=== PATIENT | male | born 1940 | race Caucasian/White ===

== ENCOUNTER 2018-01-04 17:41 | Inpatient (IN) | payer OTHER ==
[~2018-01-04] VITALS: Ht 167.6 cm; Wt 116.0 kg
[2018-01-04] MEDS ORDERED: SODIUM CHLORIDE 0.9% 1000ML 1,000 ML IV STA (18:15)
--- NOTE | 2018-01-04 18:29 | DIAGNOSTIC IMAGING REPORT ---
CHEST ONE VIEW PORTABLE CLINICAL HISTORY: 77 years-old Male presenting with ABDOMINAL PAIN/GI. TECHNIQUE: Portable upright AP view of the chest was obtained. COMPARISON: None. FINDINGS: Atherosclerosis of aortic arch. Cardiac silhouette enlarged. Pulmonary vascular prominence. Lungs and pleural spaces clear. Degenerative changes of the thoracic spine. Degenerative changes of the left acromioclavicular joint. Upper abdomen normal. IMPRESSION: 1. Cardiomegaly with volume overload. No ninfa pulmonary edema. Electronically signed by: Carlos Hannah M.D. 01/04/2018 6:27 PM Dictated Date/Time: 01/04/2018 6:27 PM
[2018-01-04] MEDS ORDERED: OPTIRAY 320 IV PRN (18:30)
[2018-01-04 18:36] LABS: BASO % 0.2 %; BASO ABS # 0.02 K/uL (0-0.2); EOS % 1.2 %; EOS ABS # 0.11 K/uL (0-0.5); HEMATOCRIT 44.4 % (42-52); HEMOGLOBIN 15.2 g/dL (14.0-18.0); IG# 0.04 K/uL (0.00-0.02); LYMPH % 14.6 %; LYMPH ABS # 1.35 K/uL (1.2-3.4); MEAN CELL VOLUME 92.9 fL (80-100); MEAN CORPUSCULAR HEMOGLOBIN 31.8 pg (25-34); MEAN CORPUSCULAR HGB CONC 34.2 g/dl (32-36); MEAN PLATELET VOLUME 10.8 fL (7.4-10.4); MONO % 6.3 %; MONO ABS # 0.58 K/uL (0.11-0.59); NEUT % 77.3 %; NEUT ABS # 7.12 K/uL (1.4-6.5); PLATELET COUNT 141 K/uL (130-400); RED CELL DISTRIBUTION WIDTH CV 13.3 % (11.5-14.5); RED CELL DISTRIBUTION WIDTH SD 44.9 fL (36.4-46.3); WHITE BLOOD COUNT 9.22 K/uL (4.8-10.8)
[2018-01-04 18:39] LABS: ISTAT CREATININE 0.6 mg/dl (0.6-1.3); ISTAT IONIZED CALCIUM 1.07 mmol/l (1.12-1.32); ISTAT POTASSIUM 3.7 mEq/L (3.3-5.0)
--- NOTE | 2018-01-04 18:39 | EMERGENCY ROOM VISIT NOTE ---
History Report prepared by Junie: Javan Castro Under the Supervision of: Dr. Gabino Christianson D.O. First contact with patient: 18:07 Chief Complaint: ABDOMINAL PAIN Stated Complaint: ABD PAIN Nursing Triage Summary: pt to the ED with c/o abd pain from a umbilical hernia that got worse today History of Present Illness The patient is a 77 year old male who presents to the Emergency Room with complaints of worsening abdominal pain that began yesterday. He rates his discomfort as a 9/10 in severity. The patient reports that he has had an umbilical hernia since 2003. He reports that he has noticed his hernia has been increasing and size and he believes has been causing pain recently. The patient states that yesterday his abdominal pain worsened, which caused him to come to the ED. He denies seeing a surgeon or doctor since he currently does not have a PCP. The patient states that he called someone today who set up an appointment on January 21 to see a PCP. The patient denies nausea, vomiting, diarrhea, fevers , chills, back pains, a history of appendectomy or cholecystectomy. He reports a history of Diabetes Mellitus. Source of History: patient Onset: yesterday Position: abdomen Symptom Intensity: 9/10 Timing: worsening Associated Symptoms: No fevers, No chills, No nausea, No vomiting, No back pain, No diarrhea Review of Systems See HPI for pertinent positives & negatives. A total of 10 systems reviewed and were otherwise negative. Past Medical & Surgical Medical Problems: (1) Diabetes (2) Umbilical hernia Family History Cancer Diabetes mellitus Heart disease Social History Smoking Status: Never Smoker Smokeless Tobacco Use: No Alcohol Use: heavy Drug Use: none Marital Status: Housing Status: lives with significant other Occupation Status: employed Current/Historical Medications Scheduled Furosemide (Lasix), 20 MG PO DAILY Lisinopril (Zestril), 20 MG PO DAILY Metformin Hcl (Glucophage), 1,000 MG PO BID Pioglitazone (Actos), 30 MG PO DAILY Simvastatin (Zocor), 40 MG PO DAILY Allergies Coded Allergies: No Known Allergies (Unverified , 01/04/18) Physical Exam Vital Signs Date Time Temp Pulse Resp B/P (MAP) Pulse Ox O2 Delivery O2 Flow Rate FiO2 01/04/18 21:11 16 166/89 95 01/04/18 20:08 74 16 174/63 96 Room Air 01/04/18 19:41 76 01/04/18 18:29 66 194/63 96 Room Air 01/04/18 17:43 37.1 66 18 205/86 95 Room Air Physical Exam GENERAL: Patient is awake, alert, and in no acute distress. Patient is resting comfortably and showing no signs of anxiety EYES: The conjunctivae are clear. The pupils are round and reactive. EARS, NOSE, MOUTH AND THROAT: The nose is without any evidence of any deformity. Mucous membranes are moist tongue is midline NECK: The neck is nontender and supple. RESPIRATORY: Normal respiratory effort is noted there is no evidence of wheezing rhonchi or rales CARDIOVASCULAR: Regular rate and rhythm noted there no murmurs rubs or gallops normal S1 normal S2 GASTROINTESTINAL: Moderately distended, diffusely tender. Umbilical hernia noted and easily reducible. Tenderness in right lower quadrant. No guarding. MUSCULOSKELETAL/EXTREMITIES: There is no evidence of gross deformity full range of motion is noted in the hips and shoulders SKIN: Pedal edema bilaterally. Scaling rash noted over right thigh. NEUROLOGIC: Patient is awake alert and oriented x3. Medical Decision & Procedures ER Provider Diagnostic Interpretation: Radiology results as stated below per my review and radiologist interpretation: CHEST ONE VIEW PORTABLE CLINICAL HISTORY: 77 years-old Male presenting with ABDOMINAL PAIN/GI. TECHNIQUE: Portable upright AP view of the chest was obtained. COMPARISON: None. FINDINGS: Atherosclerosis of aortic arch. Cardiac silhouette enlarged. Pulmonary vascular prominence. Lungs and pleural spaces clear. Degenerative changes of the thoracic spine. Degenerative changes of the left acromioclavicular joint. Upper abdomen normal. IMPRESSION: 1. Cardiomegaly with volume overload. No ninfa pulmonary edema. Electronically signed by: Carlos Hannah M.D. 01/04/2018 6:27 PM Dictated Date/Time: 01/04/2018 6:27 PM ABD/PELVIS IV CONTRAST ONLY CLINICAL HISTORY: 77 years-old Male presenting with RLQ pain, umbilical hernia. TECHNIQUE: Multidetector CT of the abdomen and pelvis was performed after the administration of intravenous contrast. IV contrast: 92 mL of Optiray 320. A dose lowering technique was used consistent with the principles of ALARA (as low as reasonably achievable). COMPARISON: None. CT DOSE (mGy.cm): The estimated cumulative dose is 1364.80 mGy.cm. FINDINGS: Demurrage Agent topogram: Unremarkable. Lung bases: Minimal basilar opacities, likely atelectasis. Multichamber enlargement of the heart. Coronary artery, mitral annular, and aortic valve calcification. No pericardial or pleural effusion. Liver: Normal morphology. Focal hypodense lesion in segment IVb, likely hepatic cyst. Parenchymal calculus noted in the right hepatic lobe, possibly indicating prior granulomatous infection. Patent hepatic vasculature. Biliary: No intrahepatic or extrahepatic biliary ductal dilatation. Gallbladder contains gallstones. Pancreas: Mild parenchymal atrophy. Peripancreatic fat infiltration at the level of the pancreatic head. No abnormal parenchymal enhancement allowing for atrophy. No peripancreatic fluid collection. Spleen: Normal. Adrenal glands: Normal. Kidneys and ureters: Few hypodensities in the kidneys likely simple cysts. Nonspecific mild perinephric fat stranding. No nephrolithiasis. No hydronephrosis. Ureters normal. Bladder: Normal. Pelvic organs: Prostate enlargement likely secondary to benign prostatic hyperplasia. Bowel: Moderate stool burden in the rectum. Few scattered diverticula in the sigmoid colon most prominently in the proximal portion. Mild stool burden in the remaining colon. Minimal wall thickening of the hepatic flexure likely secondarily reactive. The appendix is normal. No bowel obstruction. Mild wall thickening of the descending portion of the duodenum. Peritoneal cavity: Infiltration of the root of the small bowel mesentery. No free intraperitoneal gas or fluid. Lymph nodes: No enlarged lymph nodes in the abdomen or pelvis. Vasculature: Atherosclerosis of the normal caliber abdominal aorta. IVC patent. Abdominal wall: Large fat-containing umbilical hernia. Musculoskeletal: Degenerative changes of the spine. IMPRESSION: 1. Subtle peripancreatic fat stranding at the level of the pancreatic head is most consistent with interstitial edematous pancreatitis. No acute peripancreatic fluid collection. Secondary reactive changes of the descending portion of the duodenum and hepatic flexure. Electronically signed by: Carlos Hannah M.D. 01/04/2018 7:08 PM Dictated Date/Time: 01/04/2018 7:03 PM Laboratory Results 01/04/18 18:20 Red Blood Count 4.78, Mean Corpuscular Volume 92.9, Mean Corpuscular Hemoglobin 31.8, Mean Corpuscular Hemoglobin Concent 34.2, Mean Platelet Volume 10.8, Neutrophils (%) (Auto) 77.3, Lymphocytes (%) (Auto) 14.6, Monocytes (%) (Auto) 6.3, Eosinophils (%) (Auto) 1.2, Basophils (%) (Auto) 0.2, Neutrophils # (Auto) 7.12, Lymphocytes # (Auto) 1.35, Monocytes # (Auto) 0.58, Eosinophils # (Auto) 0.11, Basophils # (Auto) 0.02 01/04/18 18:20 Test 01/04/18 18:20 01/04/18 18:25 01/04/18 18:30 White Blood Count 9.22 K/uL (4.8-10.8) Red Blood Count 4.78 M/uL (4.7-6.1) Hemoglobin 15.2 g/dL (14.0-18.0) Hematocrit 44.4 % (42-52) Mean Corpuscular Volume 92.9 fL (80-100) Mean Corpuscular Hemoglobin 31.8 pg (25-34) Mean Corpuscular Hemoglobin Concent 34.2 g/dl (32-36) Platelet Count 141 K/uL (130-400) Mean Platelet Volume 10.8 fL (7.4-10.4) Neutrophils (%) (Auto) 77.3 % Lymphocytes (%) (Auto) 14.6 % Monocytes (%) (Auto) 6.3 % Eosinophils (%) (Auto) 1.2 % Basophils (%) (Auto) 0.2 % Neutrophils # (Auto) 7.12 K/uL (1.4-6.5) Lymphocytes # (Auto) 1.35 K/uL (1.2-3.4) Monocytes # (Auto) 0.58 K/uL (0.11-0.59) Eosinophils # (Auto) 0.11 K/uL (0-0.5) Basophils # (Auto) 0.02 K/uL (0-0.2) RDW Standard Deviation 44.9 fL (36.4-46.3) RDW Coefficient of Variation 13.3 % (11.5-14.5) Immature Granulocyte % (Auto) 0.4 % Immature Granulocyte # (Auto) 0.04 K/uL (0.00-0.02) Prothrombin Time 10.6 SECONDS (9.0-12.0) Prothromb Time International Ratio 1.0 (0.9-1.1) Activated Partial Thromboplast Time 28.7 SECONDS (21.0-31.0) Partial Thromboplastin Ratio 1.1 Est Creatinine Clear Calc Drug Dose 115.7 ml/min Estimated GFR () 108.6 Estimated GFR (Non- 93.7 BUN/Creatinine Ratio 14.6 (10-20) Calcium Level 9.1 mg/dl (8.5-10.1) Total Bilirubin 0.7 mg/dl (0.2-1) Direct Bilirubin 0.2 mg/dl (0-0.2) Aspartate Amino Transf (AST/SGOT) 20 U/L (15-37) Alanine Aminotransferase (ALT/SGPT) 27 U/L (12-78) Alkaline Phosphatase 69 U/L (45-117) Total Protein 7.5 gm/dl (6.4-8.2) Albumin 3.8 gm/dl (3.4-5.0) Amylase Level 37 U/L (25-115) Lipase 582 U/L (73-393) Bedside Hemoglobin 16.3 g/dl (14.0-18.0) Bedside Hematocrit 48 % (42-52) Bedside Sodium 140 mEq/L (135-144) Bedside Potassium 3.7 mEq/L (3.3-5.0) Bedside Chloride 99 mEq/L (101-112) Bedside Total CO2 26 mEq/l (24-31) Anion Gap 19.0 mmol/L (16-25) Bedside Blood Urea Nitrogen 9 mg/dl (7-18) Bedside Creatinine 0.6 mg/dl (0.6-1.3) Bedside Glucose (other) 116 mg/dl (70-99) Bedside Ionized Calcium (Jesús) 1.07 mmol/l (1.12-1.32) Urine Color YELLOW Urine Appearance CLEAR (CLEAR) Urine pH 8.0 (4.5-7.5) Urine Specific [place] 1.013 (1.000-1.030) Urine Protein NEG (NEG) Urine Glucose (UA) NEG (NEG) Urine Ketones TRACE (NEG) Urine Occult Blood NEG (NEG) Urine Nitrite NEG (NEG) Urine Bilirubin NEG (NEG) Urine Urobilinogen NEG (NEG) Urine Leukocyte Esterase NEG (NEG) Laboratory results per my review. Medications Administered Medications (Trade) Dose Ordered Sig/Pravin Route Start Time Stop Time Status Last Admin Dose Admin Sodium Chloride 1,000 ml @ 999 mls/hr Q1H1M STAT IV 01/04/18 18:15 01/04/18 19:15 DC 01/04/18 18:33 999 MLS/HR Pantoprazole Sodium 40 mg/ Syringe 10 ml @ 5 mls/min NOW ONCE IV 01/04/18 19:15 01/04/18 19:16 DC 01/04/18 20:03 5 MLS/MIN Thiamine HCl 100 mg/Syringe 10 ml @ 2 mls/min TODAY@1945 ONCE IV 01/04/18 19:45 01/04/18 19:49 DC 01/04/18 20:03 2 MLS/MIN Hydromorphone HCl (Dilaudid Inj) 0.5 mg Q6H PRN IV 01/04/18 20:45 01/18/18 20:44 01/04/18 21:50 0.5 MG Enalaprilat 1.25 mg/Dextrose 26 ml @ 100 mls/hr ONE STAT IV 01/04/18 20:39 01/04/18 20:54 DC 01/04/18 21:50 100 MLS/HR Hydralazine HCl (HydrALAZINE INJ) 10 mg Q8H PRN IV. 01/04/18 20:45 02/03/18 20:44 01/04/18 22:49 10 MG ED Course 1807: The patient was evaluated in room A10. A complete history and physical examination were performed. 1814: Ordered Sodium Chloride 1000 ml @ 999 mls/hr IV. 1914: Ordered Pantoprazole Sodium 40 mg/Syringe 10 ml @ 5 mls/min IV. 1944: Ordered Thiamine HCl 100 mg/ Syringe 10 ml @ 2 mls/min. 2000: I discussed the patients case with Dr. Carrion, [facility] Hospitalist. He understands the patients condition and agrees to accept the patient. The patient will be further evaluated. Medical Decision Prior records/ancillary studies reviewed. Triage Nursing notes reviewed. The patient's history was concerning for abdominal pain. Differential diagnosis: Etiologies such as appendicitis, diverticulitis, PUD, biliary pathology, UTI, pancreatitis, obstruction, mesenteric ischemia, aortic pathology, infections, inflammatory bowel disease, renal colic, as well as others were entertained. The patient is a 77-year-old male who presented to the emergency department for an evaluation of abdominal pain. The patient has an umbilical hernia but this does not appear to be the source of his pain. The patient was concerned it could be the source of his pain. This area appears to be easily reducible. The patient did have right sided abdominal pain. On CAT scan he appears to have signs of pancreatitis. His laboratory studies are not overwhelmingly positive for pancreatitis but given the CT findings and his age I discussed his case with the on-call [facility] hospitalist group. The patient was treated with IV fluids and IV proton pump inhibitors. He was also given thiamine. He did not wish to have any medications for pain. Medication Reconcilliation Current Medication List: was personally reviewed by me Blood Pressure Screening Patient's blood pressure: Elevated blood pressure Referred to Hospitalist. Consults Time Called: 1947 Consulting Physician: [facility] Returned Call: 1999 [facility] He understands the patients condition and agrees to accept the patient. The patient will be further evaluated. Impression Primary Impression: Abdominal pain Additional Impression: Pancreatitis Scribe Attestation The scribe's documentation has been prepared under my direction and personally reviewed by me in its entirety. I confirm that the note above accurately reflects all work, treatment, procedures, and medical decision making performed by me. Departure Information Dispostion Being Evaluated By Hospitalist Referrals No Doctor, Assigned (PCP) Patient Instructions My [facility] Problem Qualifiers Primary Impression: Abdominal pain Abdominal location: right lower quadrant Qualified Codes: R10.31 - Right lower quadrant pain Additional Impression: Pancreatitis Chronicity: acute Pancreatitis type: alcohol induced Acute pancreatitis complication: unspecified Qualified Codes: K85.20 - Alcohol induced acute pancreatitis without necrosis or infection
[2018-01-04 18:53] LABS: PTT PATIENT 28.7 SECONDS (21.0-31.0)
[2018-01-04 18:55] LABS: ALBUMIN 3.8 gm/dl (3.4-5.0); CALCIUM 9.1 mg/dl (8.5-10.1); CREATININE 0.63 mg/dl (0.60-1.40); POTASSIUM 3.6 mmol/L (3.5-5.1)
[2018-01-04 18:57] LABS: TOTAL PROTEIN 7.5 gm/dl (6.4-8.2)
--- NOTE | 2018-01-04 19:09 | DIAGNOSTIC IMAGING REPORT ---
ABD/PELVIS IV CONTRAST ONLY CLINICAL HISTORY: 77 years-old Male presenting with RLQ pain, umbilical hernia. TECHNIQUE: Multidetector CT of the abdomen and pelvis was performed after the administration of intravenous contrast. IV contrast: 92 mL of Optiray 320. A dose lowering technique was used consistent with the principles of ALARA (as low as reasonably achievable). COMPARISON: None. CT DOSE (mGy.cm): The estimated cumulative dose is 1364.80 mGy.cm. FINDINGS: Ophthalmology Surgical Technician topogram: Unremarkable. Lung bases: Minimal basilar opacities, likely atelectasis. Multichamber enlargement of the heart. Coronary artery, mitral annular, and aortic valve calcification. No pericardial or pleural effusion. Liver: Normal morphology. Focal hypodense lesion in segment IVb, likely hepatic cyst. Parenchymal calculus noted in the right hepatic lobe, possibly indicating prior granulomatous infection. Patent hepatic vasculature. Biliary: No intrahepatic or extrahepatic biliary ductal dilatation. Gallbladder contains gallstones. Pancreas: Mild parenchymal atrophy. Peripancreatic fat infiltration at the level of the pancreatic head. No abnormal parenchymal enhancement allowing for atrophy. No peripancreatic fluid collection. Spleen: Normal. Adrenal glands: Normal. Kidneys and ureters: Few hypodensities in the kidneys likely simple cysts. Nonspecific mild perinephric fat stranding. No nephrolithiasis. No hydronephrosis. Ureters normal. Bladder: Normal. Pelvic organs: Prostate enlargement likely secondary to benign prostatic hyperplasia. Bowel: Moderate stool burden in the rectum. Few scattered diverticula in the sigmoid colon most prominently in the proximal portion. Mild stool burden in the remaining colon. Minimal wall thickening of the hepatic flexure likely secondarily reactive. The appendix is normal. No bowel obstruction. Mild wall thickening of the descending portion of the duodenum. Peritoneal cavity: Infiltration of the root of the small bowel mesentery. No free intraperitoneal gas or fluid. Lymph nodes: No enlarged lymph nodes in the abdomen or pelvis. Vasculature: Atherosclerosis of the normal caliber abdominal aorta. IVC patent. Abdominal wall: Large fat-containing umbilical hernia. Musculoskeletal: Degenerative changes of the spine. IMPRESSION: 1. Subtle peripancreatic fat stranding at the level of the pancreatic head is most consistent with interstitial edematous pancreatitis. No acute peripancreatic fluid collection. Secondary reactive changes of the descending portion of the duodenum and hepatic flexure. Electronically signed by: Carlos Hannah M.D. 01/04/2018 7:08 PM Dictated Date/Time: 01/04/2018 7:03 PM
[2018-01-04] MEDS ORDERED: PANTOprazole INJ 40 MG in SYRINGE 0 ML IV ONE (19:15)
[2018-01-04] MEDS ORDERED: THIAMINE HCL 100 MG/ML 2 ML VIAL IV STA (19:16)
[2018-01-04] MEDS ORDERED: FURO-85 PO (19:44)
[2018-01-04] MEDS ORDERED: METF-384 PO (19:44)
[2018-01-04] MEDS ORDERED: ACT30 PO (19:44)
[2018-01-04] MEDS ORDERED: SIMV40TA4 PO (19:44)
[2018-01-04] MEDS ORDERED: LISI-725 PO (19:44)
[2018-01-04] MEDS ORDERED: THIAMINE HCL INJ 100 MG in SYRINGE 9 ML IV ONE (19:45)
[2018-01-04] MEDS ORDERED: ENALAPRILAT IV 1.25 MG in DEXTROSE 5% 25ML 25 ML IV STA (20:39)
[2018-01-04] MEDS ORDERED: ACETAMINOPHEN 325 MG TAB PO PRN (20:45)
--- NOTE | 2018-01-04 20:46 | History and Physical ---
History & Physical Date & Time of Service: Jan 04, 2018 at 20:46 Chief Complaint: Abd Pain Primary Care Physician: No Doctor, Assigned History of Present Illness This is a 77 year old M with 2 days of abdominal discomfort. Pain is primarily around the umbilical hernia. However imaging does not show hernia incarceration and shows evidence of pancreatitis with lipase level above 500. Patient denies nausea or vomiting or changes with bowel movements or urination. Patient's family member reports him having episode of pancreatitis 15 years ago. As per ED physician, his interpretation of the CT abdomen imaging suggestive of gallstones and recommended to hospitalist of obtaining gallbladder ultrasound. Patient is not in acute distress and spoke comfortably on room air in full sentences. However on admission has hypertension with systolic bp above 200 and the systolic blood pressure was 194 during hospitalist medicine physician exam in the ED Past Medical/Surgical History Medical Problems: (1) Diabetes (2) Umbilical hernia Family History Cancer Diabetes mellitus Heart disease Social History Smoking Status: Never Smoker Smokeless Tobacco Use: No Drug Use: none Marital Status: Occupational Status: employed Allergies Coded Allergies: No Known Allergies (Unverified , 01/04/18) Home Medications Scheduled Furosemide (Lasix), 20 MG PO DAILY Lisinopril (Zestril), 20 MG PO DAILY Metformin Hcl (Glucophage), 1,000 MG PO BID Pioglitazone (Actos), 30 MG PO DAILY Simvastatin (Zocor), 40 MG PO DAILY Review of Systems Constitutional: No fever Eyes: No worsening of vision, No diplopia ENT: No hearing loss, No nasal symptoms, No sore throat, No trouble swallowing Respiratory: No cough, No sputum, No wheezing, No shortness of breath, No hemoptysis Cardiovascular: No chest pain, No edema, No palpitations Abdomen: + pain (pain around umbilicus), No nausea, No vomiting, No diarrhea, No constipation, No GI bleeding Genitourinary - Male: No dysuria Neurologic: No weakness, No numbness/tingling Endocrine: No fatigue Hematologic / Lymphatic: No abnormal bleeding/bruising Integumentary: No rash, No itch Physical Exam Vital Signs Date Time Temp Pulse Resp B/P (MAP) Pulse Ox O2 Delivery O2 Flow Rate FiO2 01/04/18 20:08 74 16 174/63 96 Room Air 01/04/18 19:41 76 01/04/18 18:29 66 194/63 96 Room Air 01/04/18 17:43 37.1 66 18 205/86 95 Room Air General Appearance: no apparent distress Head: normocephalic, atraumatic Eyes: normal inspection, EOMI, sclerae normal ENT: normal ENT inspection, hearing grossly normal, pharynx normal Neck: supple, no JVD, trachea midline Respiratory/Chest: chest non-tender, lungs clear, normal breath sounds, no respiratory distress, no accessory muscle use Cardiovascular: regular rate, rhythm, no edema, no murmur, normal peripheral pulses Abdomen/GI: normal bowel sounds, soft, + pertinent finding (umbilical hernia, patient reports tenderness around umbilical hernia on palpation) Back: normal inspection, no CVA tenderness, no muscle spasm, normal range of motion Extremities/Musculoskelatal: normal inspection, no calf tenderness, normal capillary refill, no pedal edema, normal range of motion Neurologic/Psych: no motor/sensory deficits, alert, normal mood/affect, oriented x 3 Skin: normal color, warm/dry, no rash Diagnostics Laboratory Results Results Past 24 Hours Test 01/04/18 18:20 01/04/18 18:25 01/04/18 18:30 Range/Units White Blood Count 9.22 4.8-10.8 K/uL Red Blood Count 4.78 4.7-6.1 M/uL Hemoglobin 15.2 14.0-18.0 g/dL Hematocrit 44.4 42-52 % Mean Corpuscular Volume 92.9 80-100 fL Mean Corpuscular Hemoglobin 31.8 25-34 pg Mean Corpuscular Hemoglobin Concent 34.2 32-36 g/dl Platelet Count 141 130-400 K/uL Mean Platelet Volume 10.8 7.4-10.4 fL Neutrophils (%) (Auto) 77.3 % Lymphocytes (%) (Auto) 14.6 % Monocytes (%) (Auto) 6.3 % Eosinophils (%) (Auto) 1.2 % Basophils (%) (Auto) 0.2 % Neutrophils # (Auto) 7.12 1.4-6.5 K/uL Lymphocytes # (Auto) 1.35 1.2-3.4 K/uL Monocytes # (Auto) 0.58 0.11-0.59 K/uL Eosinophils # (Auto) 0.11 0-0.5 K/uL Basophils # (Auto) 0.02 0-0.2 K/uL RDW Standard Deviation 44.9 36.4-46.3 fL RDW Coefficient of Variation 13.3 11.5-14.5 % Immature Granulocyte % (Auto) 0.4 % Immature Granulocyte # (Auto) 0.04 0.00-0.02 K/uL Prothrombin Time 10.6 9.0-12.0 SECONDS Prothromb Time International Ratio 1.0 0.9-1.1 Activated Partial Thromboplast Time 28.7 21.0-31.0 SECONDS Partial Thromboplastin Ratio 1.1 Sodium Level 137 136-145 mmol/L Potassium Level 3.6 3.5-5.1 mmol/L Chloride Level 102 98-107 mmol/L Carbon Dioxide Level 27 21-32 mmol/L Anion Gap 8.0 19.0 16-25 mmol/L Blood Urea Nitrogen 9 7-18 mg/dl Creatinine 0.63 0.60-1.40 mg/dl Est Creatinine Clear Calc Drug Dose 115.7 ml/min Estimated GFR () 108.6 Estimated GFR (Non- 93.7 BUN/Creatinine Ratio 14.6 10-20 Random Glucose 111 70-99 mg/dl Calcium Level 9.1 8.5-10.1 mg/dl Total Bilirubin 0.7 0.2-1 mg/dl Direct Bilirubin 0.2 0-0.2 mg/dl Aspartate Amino Transf (AST/SGOT) 20 15-37 U/L Alanine Aminotransferase (ALT/SGPT) 27 12-78 U/L Alkaline Phosphatase 69 45-117 U/L Total Protein 7.5 6.4-8.2 gm/dl Albumin 3.8 3.4-5.0 gm/dl Lipase 582 73-393 U/L Bedside Hemoglobin 16.3 14.0-18.0 g/dl Bedside Hematocrit 48 42-52 % Bedside Sodium 140 135-144 mEq/L Bedside Potassium 3.7 3.3-5.0 mEq/L Bedside Chloride 99 101-112 mEq/L Bedside Total CO2 26 24-31 mEq/l Bedside Blood Urea Nitrogen 9 7-18 mg/dl Bedside Creatinine 0.6 0.6-1.3 mg/dl Bedside Glucose (other) 116 70-99 mg/dl Bedside Ionized Calcium (Jesús) 1.07 1.12-1.32 mmol/l Urine Color YELLOW Urine Appearance CLEAR CLEAR Urine pH 8.0 4.5-7.5 Urine Specific [place] 1.013 1.000-1.030 Urine Protein NEG NEG Urine Glucose (UA) NEG NEG Urine Ketones TRACE NEG Urine Occult Blood NEG NEG Urine Nitrite NEG NEG Urine Bilirubin NEG NEG Urine Urobilinogen NEG NEG Urine Leukocyte Esterase NEG NEG Impression Assessment and Plan Pancreatitis -patient's family member reports the patient has had pancreatitis 15 years ago -patient denies alcohol history -when asked about diet, such as greasy 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 No acute peripancreatic fluid collection. Secondary reactive changes of the descending portion of the duodenum and hepatic flexure. -RUQ ultrasound results pending -lipase 582, check amylase -keep NPO except medications and ice/water sips -IV fluids, Pain control -Gastroenterology consult requested Dyslipidemia -Hold statin until GI evaluation as differential includes statin induced pancreatitis Diabetes -Hold statin until GI evaluation as differential includes statin induced pancreatitis -Hold metformin -start sliding scale insulin, check fingerstick glucose -Igg4 to be sent with 01/05/18 morning labs to rule out auto-immune pancreatitis Umbilical Hernia -CT Abdomen does not suggest incarceration of hernia Cardiac -Echocardiogram in 01/23/2017 with EF of 60 to 64%, PASP 38 mmHg, no significant valvular disease -patient is euvolemic, takes Lasix 20 mg at home, appears he is on diuretics for pedal edema and pulmonary hypertension based on review of outpatient problem lists but patient does not know why he is taking Lasix -given patient is on IV fluids for the pancreatitis and hypertensive, will continue home dose Lasix HTN -ordered IV enalaprilat and prn hydralazine as patient's systolic 194 when assessed by hospitalist, was 205/86 on initial arrival -continue home dose Lisinopril -pain may contribute to high blood pressure, pain medication for pancreatitis DVT ppx: SCDs Full Code daughter Niecy phone number [phone] Resuscitation Status VTE Prophylaxis Will order VTE Prophylaxis: Yes
--- NOTE | 2018-01-04 21:22 | DIAGNOSTIC IMAGING REPORT ---
GALLBLADDER-ABD LIMITED CLINICAL HISTORY: 77 years-old Male presenting with rule out gallstones or gallbladder obstructions. TECHNIQUE: Real-time grayscale and limited color Doppler ultrasound imaging of the abdomen limited to the right upper quadrant was performed. COMPARISON: CT from 01/04/2018. FINDINGS: Pancreas: Largely obscured due to overlying bowel gas. Liver: Moderately hyperechogenic parenchyma with partial obscuration of the right hemidiaphragm, likely indicating moderate steatosis. The liver measures 20.8 cm in maximal sagittal dimension. Anechoic 1.6 cm cyst noted. Main portal vein patent with normal directional flow. Biliary: No intrahepatic biliary ductal dilatation. Common bile duct measures up to 5 mm in diameter. Gallbladder: Gallstones and gallbladder sludge without evidence of gallbladder distention, significant wall thickening, or inflammatory change. Trace pericholecystic fluid may be present. Right kidney: Normal in appearance. No hydronephrosis. Ascites: None. Other: None. IMPRESSION: 1. Cholelithiasis and gallbladder sludge. No biliary ductal dilatation or convincing evidence of cholecystitis. 2. Hepatic steatosis and hepatomegaly. Correlate with liver function tests to exclude steatohepatitis as a cause for abdominal pain. Electronically signed by: Carlos Hannah M.D. 01/04/2018 9:20 PM Dictated Date/Time: 01/04/2018 9:17 PM
[2018-01-04] MEDS: HYDROmorphone INJ 0.5 MG/0.5 ML SYR IV PRN (21:50)
[2018-01-04] MEDS ORDERED: SODIUM CHLORIDE 0.9% 1000ML 1,000 ML IV SCH (22:00)
[2018-01-04 22:25] VITALS: Ht 167.6 cm; Wt 116.0 kg
[2018-01-04 22:30] VITALS: BP 192/78; PULSE 71; TEMP 36.6; O2SAT 94
[2018-01-04 22:47] VITALS: BP 188/83; PULSE 92
[2018-01-04] MEDS: HydrALAZINE HCL 20 MG/ML VIAL IV. PRN (22:49)
[2018-01-05] VITALS (7 sets, daily range): BP systolic 135–174; BP diastolic 68–90; PULSE 71–92; TEMP 36.7–37.2; O2SAT 92–97
[2018-01-05] MEDS ORDERED: INFLUENZA VIRUS QUAD VACCINE 0.5 ML SYR IM. ONE (01:00)
[2018-01-05] MEDS ORDERED: PNEUMOCOCCAL POLYSACCHARIDES 25 MCG/0.5 ML VIAL/SYR IM. ONE (01:00)
[2018-01-05] MEDS ORDERED: INFLUENZA ADMINISTRATION CHARGE ONE (01:00)
[2018-01-05] MEDS ORDERED: PNEUMOCOCCAL ADMINISTRATION CHARGE ONE (01:00)
[2018-01-05] MEDS: HYDROmorphone INJ 0.5 MG/0.5 ML SYR IV PRN ×2 (03:34→11:32)
[2018-01-05] MEDS: LACTATED RINGER'S 1000ML 1,000 ML IV SCH ×2 (07:47→14:27)
[2018-01-05] MEDS: HydrALAZINE HCL 20 MG/ML VIAL IV. PRN (07:51)
[2018-01-05] MEDS: LISINOPRIL 20 MG TAB PO SCH (07:55)
[2018-01-05] MEDS ORDERED: FUROSEMIDE 20 MG TAB PO SCH (08:00)
[2018-01-05 08:20] LABS: BASO % 0.1 %; BASO ABS # 0.01 K/uL (0-0.2); EOS % 0.5 %; EOS ABS # 0.05 K/uL (0-0.5); HEMATOCRIT 43.9 % (42-52); IG# 0.02 K/uL (0.00-0.02); LYMPH % 13.8 %; MEAN CELL VOLUME 92.8 fL (80-100); MEAN CORPUSCULAR HEMOGLOBIN 31.7 pg (25-34); MEAN CORPUSCULAR HGB CONC 34.2 g/dl (32-36); MEAN PLATELET VOLUME 11.3 fL (7.4-10.4); MONO % 8.5 %; NEUT % 76.9 %; NEUT ABS # 7.25 K/uL (1.4-6.5); PLATELET COUNT 150 K/uL (130-400); RED CELL DISTRIBUTION WIDTH CV 13.4 % (11.5-14.5); RED CELL DISTRIBUTION WIDTH SD 45.9 fL (36.4-46.3); WHITE BLOOD COUNT 9.43 K/uL (4.8-10.8)
[2018-01-05 08:50] LABS: ALBUMIN 3.4 gm/dl (3.4-5.0); CALCIUM 8.4 mg/dl (8.5-10.1); CREATININE 0.69 mg/dl (0.60-1.40); POTASSIUM 3.6 mmol/L (3.5-5.1)
[2018-01-05 08:53] LABS: TOTAL PROTEIN 6.8 gm/dl (6.4-8.2)
[2018-01-05 09:38] LABS: HEP C IGG 13 YRS+OLDER_RFLX NEG (NEG)
--- NOTE | 2018-01-05 10:21 | Pre-Operative Consultation ---
History General Date of Service: Jan 05, 2018. HPI HPI: The patient is a 77 year old male being seen for cholecystitis and gallstone pancreatitis which has resolved and a symptomatic umbilical hernia. He was seen in ED with 2 days of abdominal discomfort. he described it mainly periumbilically. He denies nausea or vomiting or changes with bowel movements or urination. A CT abdomen showed gallstones and evidence of pancreatitis with lipase level above 500. Ultrasound has suggestions of possible cholecystitis. He was hypertensive in ED and is on hospitalist medicine service. He will be medically cleared prior to schedule surgery in AM. Historian: patient Procedure Urgency: Acute Risk Assessment Daily beta monique use?: No Problem List Medical Problems: (1) Abdominal pain Status: Acute (2) Pancreatitis Status: Acute Medical & Surgical History Past Medical History: diabetes, high cholesterol, hypertension Past Surgical History: Obesity; umbilical hernia Past Surgical History: no surgical history Family History Family History: cancer, diabetes, heart disease Social History Hx Tobacco Use In Past Year?: No Smoking Status: Never Smoker Alcohol: heavy Drug Use: none Marital status: Occupation status: employed Allergies Allergies: Coded Allergies: No Known Allergies (Unverified , 01/04/18) Medications Current Inpatient Medications Current Inpatient Medications Medications (Trade) Dose Ordered Sig/Pravin Route Start Time Stop Time Status Last Admin Dose Admin Ioversol (Optiray 320) 100 ml UD PRN IV 01/04/18 18:30 01/08/18 18:29 Lisinopril (Zestril Tab) 20 mg DAILY PO 01/05/18 08:00 02/04/18 08:59 01/05/18 07:55 20 MG Hydromorphone HCl (Dilaudid Inj) 0.5 mg Q6H PRN IV 01/04/18 20:45 01/18/18 20:44 01/05/18 03:34 0.5 MG Acetaminophen (Tylenol Tab) 650 mg Q4H PRN PO 01/04/18 20:45 02/03/18 20:44 01/05/18 07:51 650 MG Hydralazine HCl (HydrALAZINE INJ) 10 mg Q8H PRN IV. 01/04/18 20:45 02/03/18 20:44 01/05/18 07:51 10 MG Lactated Ringer's 1,000 ml @ 150 mls/hr Q6H40M IV 01/05/18 08:00 02/04/18 07:59 01/05/18 07:47 150 MLS/HR Review of Systems Review of Systems Constitutional: denies chills, denies diaphoresis, denies fever Eyes: reports: no symptoms ENT: reports: no symptoms reported Cardiovascular: denies: chest pain, chest tightness, chest pressure Respiratory: denies: cough, short of breath Gastrointestinal: abdominal pain, denies constipation, denies diarrhea, nausea , denies vomiting Genitourinary - Male: reports: no symptoms Musculoskeletal: denies back pain, denies joint pain, denies joint swelling Integumentary: denies change in color, denies change in hair/nails Neurologic: reports: no symptoms Psychiatric: reports: no symptoms Endocrine: no symptoms Hematologic / Lymphatic: no symptoms Allergic / Immunologic: no symptoms Physical Exam Physical Exam General Appearance: + WD/WN, No distress Ears, Nose, Throat: + normal ENT inspection Neck: No abnormal inspection, No tracheal deviation, No lymphadenophy Respiratory: No chest tenderness, No decreased breath sounds, No rhonchi, No stridor, No wheezing Cardiovascular: No tachycardia, No gallop/S3, No edema, No diastolic murmur, No gallop/S4, No bradycardia, No systolic murmur Abdomen: + tenderness, + hernia, No abnormal bowel sounds, No rebound, No distension, No organomegaly, No guarding Extremities: No abnormal range of motion, No edema, No deformity, No swelling Neurologic/Psychiatric: No motor deficit/weakness, No disorientation, No sensory deficit Skin Characteristics: No abnormal color, No diaphoresis, No pallor, No jaundice Lymphatic: No abnormal adenopathy Diagnostics Labs Labs Results Past 24 Hours Test 01/04/18 18:20 01/04/18 18:25 01/04/18 18:30 01/05/18 07:47 Range/Units White Blood Count 9.22 9.43 4.8-10.8 K/uL Red Blood Count 4.78 4.73 4.7-6.1 M/uL Hemoglobin 15.2 15.0 14.0-18.0 g/dL Hematocrit 44.4 43.9 42-52 % Mean Corpuscular Volume 92.9 92.8 80-100 fL Mean Corpuscular Hemoglobin 31.8 31.7 25-34 pg Mean Corpuscular Hemoglobin Concent 34.2 34.2 32-36 g/dl Platelet Count 141 150 130-400 K/uL Mean Platelet Volume 10.8 11.3 7.4-10.4 fL Neutrophils (%) (Auto) 77.3 76.9 % Lymphocytes (%) (Auto) 14.6 13.8 % Monocytes (%) (Auto) 6.3 8.5 % Eosinophils (%) (Auto) 1.2 0.5 % Basophils (%) (Auto) 0.2 0.1 % Neutrophils # (Auto) 7.12 7.25 1.4-6.5 K/uL Lymphocytes # (Auto) 1.35 1.30 1.2-3.4 K/uL Monocytes # (Auto) 0.58 0.80 0.11-0.59 K/uL Eosinophils # (Auto) 0.11 0.05 0-0.5 K/uL Basophils # (Auto) 0.02 0.01 0-0.2 K/uL RDW Standard Deviation 44.9 45.9 36.4-46.3 fL RDW Coefficient of Variation 13.3 13.4 11.5-14.5 % Immature Granulocyte % (Auto) 0.4 0.2 % Immature Granulocyte # (Auto) 0.04 0.02 0.00-0.02 K/uL Prothrombin Time 10.6 9.0-12.0 SECONDS Prothromb Time International Ratio 1.0 0.9-1.1 Activated Partial Thromboplast Time 28.7 21.0-31.0 SECONDS Partial Thromboplastin Ratio 1.1 Sodium Level 137 137 136-145 mmol/L Potassium Level 3.6 3.6 3.5-5.1 mmol/L Chloride Level 102 104 98-107 mmol/L Carbon Dioxide Level 27 27 21-32 mmol/L Anion Gap 8.0 19.0 6.0 3-11 mmol/L Blood Urea Nitrogen 9 9 7-18 mg/dl Creatinine 0.63 0.69 0.60-1.40 mg/dl Est Creatinine Clear Calc Drug Dose 115.7 103.9 ml/min Estimated GFR () 108.6 104.6 Estimated GFR (Non- 93.7 90.3 BUN/Creatinine Ratio 14.6 12.3 10-20 Random Glucose 111 118 70-99 mg/dl Calcium Level 9.1 8.4 8.5-10.1 mg/dl Total Bilirubin 0.7 0.8 0.2-1 mg/dl Direct Bilirubin 0.2 0-0.2 mg/dl Aspartate Amino Transf (AST/SGOT) 20 19 15-37 U/L Alanine Aminotransferase (ALT/SGPT) 27 24 12-78 U/L Alkaline Phosphatase 69 63 45-117 U/L Total Protein 7.5 6.8 6.4-8.2 gm/dl Albumin 3.8 3.4 3.4-5.0 gm/dl Amylase Level 37 25 25-115 U/L Lipase 582 273 73-393 U/L Bedside Hemoglobin 16.3 14.0-18.0 g/dl Bedside Hematocrit 48 42-52 % Bedside Sodium 140 135-144 mEq/L Bedside Potassium 3.7 3.3-5.0 mEq/L Bedside Chloride 99 101-112 mEq/L Bedside Total CO2 26 24-31 mEq/l Bedside Blood Urea Nitrogen 9 7-18 mg/dl Bedside Creatinine 0.6 0.6-1.3 mg/dl Bedside Glucose (other) 116 70-99 mg/dl Bedside Ionized Calcium (Jesús) 1.07 1.12-1.32 mmol/l Urine Color YELLOW Urine Appearance CLEAR CLEAR Urine pH 8.0 4.5-7.5 Urine Specific [place] 1.013 1.000-1.030 Urine Protein NEG NEG Urine Glucose (UA) NEG NEG Urine Ketones TRACE NEG Urine Occult Blood NEG NEG Urine Nitrite NEG NEG Urine Bilirubin NEG NEG Urine Urobilinogen NEG NEG Urine Leukocyte Esterase NEG NEG Globulin 3.4 2.5-4.0 gm/dl Albumin/Globulin Ratio 1.0 0.9-2 Hepatitis B Surface Antibody NEG Hepatitis C Antibody NEG NEG Test 01/05/18 07:52 Range/Units Bedside Glucose 112 70-99 mg/dl Diagnostic Radiology Diagnostic Radiology GALLBLADDER-ABD LIMITED CLINICAL HISTORY: 77 years-old Male presenting with rule out gallstones or gallbladder obstructions. TECHNIQUE: Real-time grayscale and limited color Doppler ultrasound imaging of the abdomen limited to the right upper quadrant was performed. COMPARISON: CT from 01/04/2018. FINDINGS: Pancreas: Largely obscured due to overlying bowel gas. Liver: Moderately hyperechogenic parenchyma with partial obscuration of the right hemidiaphragm, likely indicating moderate steatosis. The liver measures 20.8 cm in maximal sagittal dimension. Anechoic 1.6 cm cyst noted. Main portal vein patent with normal directional flow. Biliary: No intrahepatic biliary ductal dilatation. Common bile duct measures up to 5 mm in diameter. Gallbladder: Gallstones and gallbladder sludge without evidence of gallbladder distention, significant wall thickening, or inflammatory change. Trace pericholecystic fluid may be present. Right kidney: Normal in appearance. No hydronephrosis. Ascites: None. Other: None. IMPRESSION: 1. Cholelithiasis and gallbladder sludge. No biliary ductal dilatation or convincing evidence of cholecystitis. 2. Hepatic steatosis and hepatomegaly. Correlate with liver function tests to exclude steatohepatitis as a cause for abdominal pain. Impression Assessment and Plan Assessment and Plan Cholecystitis/gallstone pancreatitis/umbilical hernia -NPO -medical clearance -to OR for lap kellie w/IOC and UHR
[2018-01-05] MEDS ORDERED: OXYCODONE/ACETAMINOPHEN 5-325 TAB PO PRN (10:30)
[2018-01-05] MEDS ORDERED: ONDANSETRON INJ 2 MG/ML 2 ML VIAL IV SCH (10:30)
[2018-01-05] MEDS ORDERED: GLUCAGON FOR INJ 1 MG VIAL SQ PRN (11:45)
[2018-01-05] MEDS ORDERED: GLUCOSE 10 TABS/TUBE PO PRN (11:45)
[2018-01-05] MEDS ORDERED: DEXTROSE 50% 50 ML SYR IV PRN (11:45)
[2018-01-05] MEDS ORDERED: GLUCOSE 40% GEL 15 GM TUBE PO PRN (11:45)
[2018-01-05] MEDS ORDERED: CALCIUM CARBONATE 1250MG TAB PO ONE (11:54)
[2018-01-05] MEDS ORDERED: NURSING DECISION MEDICATION ORDER SCH (12:30)
[2018-01-05] MEDS ORDERED: CLONIDINE HCL 0.1 MG TAB PO PRN (13:45)
[2018-01-05] MEDS: CLONIDINE HCL 0.1 MG TAB PO PRN (14:27)
[2018-01-05] MEDS ORDERED: INSULIN ASPART 100 UNITS/ML 3 ML PEN SC SCH (16:30)
[2018-01-05] MEDS: INSULIN ASPART 100 UNITS/ML 3 ML PEN SC SCH (18:00)
--- NOTE | 2018-01-05 19:31 | Progress Note ---
Medicine Progress Note Date & Time of Visit: Jan 05, 2018 at 19:24. Subjective Seen resting in bed comfortable Began to have periumbilical pain again in the afternoon Denies nausea vomiting fever chills Denies chest pain shortness of breath palpitations dizziness No other symptoms Objective Last 8 Hrs Date Time Temp Pulse Resp B/P (MAP) Pulse Ox O2 Delivery O2 Flow Rate FiO2 01/05/18 16:00 Room Air 01/05/18 15:17 36.7 79 20 155/83 (107) 92 Room Air 01/05/18 14:00 174/81 (112) 01/05/18 12:11 167/90 (115) Physical Exam: General-oriented 3 not in distress speaking sentences Head- atraumatic Eyes- PERRL, EOMI, anicteric ENT- oropharynx clear Neck- supple, no JVD, no adenopathy, no thyromegaly; carotids +2/2 Lungs- clear to auscultation bilaterally Heart- regular rhythm; no murmur, normal rate Abdomen- normal bowel sounds, nondistended soft, nontender, positive umbilical hernia Extremities- no pretibial edema, no calf tenderness; peripheral pulses intact Neuro- alert, oriented x 3; no gross focal motor or sensory deficits or any other neurologic deficits Skin- warm & dry Laboratory Results: Last 24 Hours Test 01/05/18 07:47 01/05/18 07:52 01/05/18 11:17 01/05/18 17:00 White Blood Count 9.43 K/uL Red Blood Count 4.73 M/uL Hemoglobin 15.0 g/dL Hematocrit 43.9 % Mean Corpuscular Volume 92.8 fL Mean Corpuscular Hemoglobin 31.7 pg Mean Corpuscular Hemoglobin Concent 34.2 g/dl Platelet Count 150 K/uL Mean Platelet Volume 11.3 fL Neutrophils (%) (Auto) 76.9 % Lymphocytes (%) (Auto) 13.8 % Monocytes (%) (Auto) 8.5 % Eosinophils (%) (Auto) 0.5 % Basophils (%) (Auto) 0.1 % Neutrophils # (Auto) 7.25 K/uL Lymphocytes # (Auto) 1.30 K/uL Monocytes # (Auto) 0.80 K/uL Eosinophils # (Auto) 0.05 K/uL Basophils # (Auto) 0.01 K/uL RDW Standard Deviation 45.9 fL RDW Coefficient of Variation 13.4 % Immature Granulocyte % (Auto) 0.2 % Immature Granulocyte # (Auto) 0.02 K/uL Sodium Level 137 mmol/L Potassium Level 3.6 mmol/L Chloride Level 104 mmol/L Carbon Dioxide Level 27 mmol/L Anion Gap 6.0 mmol/L Blood Urea Nitrogen 9 mg/dl Creatinine 0.69 mg/dl Est Creatinine Clear Calc Drug Dose 103.9 ml/min Estimated GFR () 104.6 Estimated GFR (Non- 90.3 BUN/Creatinine Ratio 12.3 Random Glucose 118 mg/dl Calcium Level 8.4 mg/dl Total Bilirubin 0.8 mg/dl Aspartate Amino Transf (AST/SGOT) 19 U/L Alanine Aminotransferase (ALT/SGPT) 24 U/L Alkaline Phosphatase 63 U/L Total Protein 6.8 gm/dl Albumin 3.4 gm/dl Globulin 3.4 gm/dl Albumin/Globulin Ratio 1.0 Triglycerides Level 63 mg/dl Cholesterol Level 120 mg/dl HDL Cholesterol 61 mg/dl LDL Cholesterol, Calculated 46 mg/dl VLDL Cholesterol, Calculated 13 mg/dl Cholesterol/HDL Ratio 2.0 Amylase Level 25 U/L Lipase 273 U/L Hepatitis B Surface Antibody NEG Hepatitis C Antibody NEG Bedside Glucose 112 mg/dl 127 mg/dl Ionized Calcium 1.10 mmol/l Test 01/05/18 18:03 Bedside Glucose 111 mg/dl Assessment & Plan ACUTE PANCREATITIS LIKELY SECONDARY TO GALLSTONES CHOLELITHIASIS -patient denies alcohol history -when asked about diet, such as greasy 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 No acute peripancreatic fluid collection. Secondary reactive changes of the descending portion of the duodenum and hepatic flexure. -RUQ ultrasound positive for cholelithiasis Remains hemodynamically stable Lipase level normalized Having some abdominal pain today continue n.p.o. Continue lactated Ringer's solution General surgery consulted Dr. Gallegos Plan for cholecystectomy and umbilical hernia repair tomorrow Patient low to moderate risk for cardiopulmonary complications status post surgery given her advanced age Explained this to the patient and he is agreeable and understanding of the risks involved with surgery No medical contraindication to go on with planned surgery tomorrow Umbilical Hernia -CT Abdomen does not suggest incarceration of hernia Dyslipidemia -Hold statin Diabetes Insulin sliding scale for now Monitor BSG's Cardiac -Echocardiogram in 01/23/2017 with EF of 60 to 64%, PASP 38 mmHg, no significant valvular disease -patient is euvolemic, takes Lasix 20 mg at home -Hold Lasix for now patient being hydrated for acute pancreatitis HTN Continue lisinopril As needed clonidine DVT ppx: SCDs in anticipation of surgery tomorrow Full Code daughter Niecy phone number [phone] Disposition Pending Anticipate discharge to home when medically stable and cleared by surgery Current Inpatient Medications: Current Inpatient Medications Medications (Trade) Dose Ordered Sig/Pravin Route Start Time Stop Time Status Last Admin Dose Admin Ioversol (Optiray 320) 100 ml UD PRN IV 01/04/18 18:30 01/08/18 18:29 Lisinopril (Zestril Tab) 20 mg DAILY PO 01/05/18 08:00 02/04/18 08:59 01/05/18 07:55 20 MG Hydromorphone HCl (Dilaudid Inj) 0.5 mg Q6H PRN IV 01/04/18 20:45 01/18/18 20:44 01/05/18 11:32 0.5 MG Acetaminophen (Tylenol Tab) 650 mg Q4H PRN PO 01/04/18 20:45 02/03/18 20:44 01/05/18 07:51 650 MG Lactated Ringer's 1,000 ml @ 75 mls/hr [id number] IV 01/05/18 08:00 02/04/18 07:59 01/05/18 14:27 75 MLS/HR Oxycodone/ Acetaminophen (Percocet 5-325mg Tab) 2 tab Q4H PRN PO 01/05/18 10:30 01/19/18 10:29 Cefazolin Sodium 22.5 ml @ 3 mls/min PREOP IV 01/06/18 06:00 01/06/18 18:00 Glucose (Glucose 40% Gel) 15-30 GRAMS 15 GRAMS... UD PRN PO 01/05/18 11:45 02/04/18 11:44 Glucose (Glucose Chew Tab) 4-8 Tablets 4 Tabl... UD PRN PO 01/05/18 11:45 02/04/18 11:44 Dextrose (Dextrose 50% 50ML Syringe) 25-50ML OF 50% DW IV FOR... UD PRN IV 01/05/18 11:45 02/04/18 11:44 Glucagon (Glucagon Inj) 1 mg UD PRN SQ 01/05/18 11:45 02/04/18 11:44 Calcium Carbonate (oS-Luis 500 TAB) 1,250 mg BID PO 01/05/18 20:00 02/04/18 19:59 Insulin Aspart (novoLOG ASPART) SLIDING SCALE If C... Q6 SC 01/05/18 18:00 02/04/18 16:29 Clonidine HCl (Catapres Tab) 0.1 mg Q6H PRN PO 01/05/18 14:15 02/04/18 14:14 01/05/18 14:27 0.1 MG
[2018-01-05] MEDS: CALCIUM CARBONATE 1250MG TAB PO SCH (20:39)
[2018-01-05] MEDS ORDERED: COUGH DROP (SUGAR FREE) LOZ 24 LOZ/1 BOX LOZ PRN (21:00)
[2018-01-06] VITALS (8 sets, daily range): BP systolic 133–160; BP diastolic 64–79; PULSE 72–83; TEMP 36.3–36.9; O2SAT 91–95
[2018-01-06] MEDS: LACTATED RINGER'S 1000ML 1,000 ML IV SCH ×2 (03:23→17:56)
[2018-01-06] MEDS ORDERED: CEFAZOLIN IV 3,000 MG in DEXTROSE 5% 50ML 50 ML IV SCH (06:00)
[2018-01-06] MEDS ORDERED: CEFAZOLIN 3000MG IV PUSH 22.5 ML IV SCH (06:00)
[2018-01-06] MEDS ORDERED: ONDANSETRON INJ 2 MG/ML 2 ML VIAL IV PRN ×2 (07:00→09:15)
[2018-01-06] MEDS: INSULIN ASPART 100 UNITS/ML 3 ML PEN SC SCH ×4 (07:00→20:47)
[2018-01-06] MEDS ORDERED: ATROPINE SULFATE 0.1 MG/ML 5ML SYR IV PRN (07:00)
[2018-01-06] MEDS ORDERED: EpHEDrine SULFATE INJ 50 MG/ML AMP IV PRN (07:00)
[2018-01-06] MEDS ORDERED: PHENYLEPHRINE 100MCG/ML 5ML SYR IV PRN (07:00)
[2018-01-06] MEDS ORDERED: HYDROmorphone INJ 1 MG/ML SYR IV PRN (07:00)
[2018-01-06] MEDS ORDERED: GLYCOPYRROLATE INJ 0.2 MG/ML VIAL ONE (07:08)
[2018-01-06] MEDS ORDERED: LIDOCAINE HCL 2% 2 ML VIAL (20MG/ML) ONE (07:08)
[2018-01-06] MEDS ORDERED: NEOSTIGMINE METHYLSULFATE 5 MG/5 ML SYR ONE (07:08)
[2018-01-06] MEDS ORDERED: ROCURONIUM BROMIDE 10 MG/ML 5 ML VIAL IV ONE (07:08)
[2018-01-06] MEDS ORDERED: PROPOFOL IV EMULSION 10 MG/ML 20 ML VIAL IV ONE ×2 (07:08→12:07)
[2018-01-06] MEDS ORDERED: ONDANSETRON INJ 2 MG/ML 2 ML VIAL ONE (07:08)
[2018-01-06] MEDS ORDERED: DEXAMETHASONE SOD INJ 4 MG/ML VIAL ONE (07:08)
[2018-01-06] MEDS ORDERED: FENTANYL CITRATE INJ 50 MCG/1 ML 2 ML VIAL ONE ×2 (07:10→09:35)
[2018-01-06] MEDS ORDERED: MIDAZOLAM HCL 1 MG/ML 2ML VIAL ONE (07:10)
--- NOTE | 2018-01-06 07:12 | History & Physical Bridge Note ---
H&P Re-Evaluation Bridge Note: I have examined the patient, reviewed the History & Physical and in the interval since the performance of the History & Physical I have noted the following changes of clinical significance: No changes noted
[2018-01-06] MEDS ORDERED: CONRAY 60% 50 ML VIAL ONE (07:48)
[2018-01-06] MEDS ORDERED: BUPIVACAINE/EPINEPHRINE 0.5% MPF 1:200,000 30 ML VIAL ONE (07:48)
[2018-01-06] MEDS ORDERED: LABETALOL HCL IV 5 MG/ML 20ML IV ONE (08:24)
[2018-01-06] MEDS ORDERED: HydrALAZINE HCL 20 MG/ML VIAL ONE (08:30)
--- NOTE | 2018-01-06 09:00 | [facility] Post Operative Brief Note ---
Immediate Operative Summary Operative Date Jan 06, 2018. Pre-Operative Diagnosis Cholecystitis and gallstone pancreatitis, Symptomatic Umbilical Hernia Post-Operative Diagnosis same Procedure(s) Performed 1. Laparoscopic Cholecystectomy 2. Umbilical Hernia Repair Surgeon Dr. Rojelio Wells [employer]s Supervisor Surgeon(s) none Estimated Blood Loss 30mL Findings Consistent with Post-Op Diagnosis Specimens Permanent A. Gallbladder and contents Drains None Anesthesia Type General Complication(s) none Imnflammatory changes around duct made IOC too risky Disposition Accompanied Pt To Recover: no Disposition: Recovery Room / PACU
[2018-01-06] MEDS ORDERED: MoRPHine SULFATE 2 MG/ML CARP IV PRN (09:15)
[2018-01-06] MEDS ORDERED: OXYCODONE/ACETAMINOPHEN 5-325 TAB PO PRN (09:15)
[2018-01-06] MEDS: FENTANYL CITRATE INJ 50 MCG/1 ML 2 ML VIAL IV PRN ×2 (09:38→09:44)
--- NOTE | 2018-01-06 10:20 | Anesthesiology Progress Note ---
Anesthesia Post Op Note Date & Time Jan 06, 2018 at 10:20 Vital Signs Pain Intensity: 3 Vital Signs Past 12 Hours Date Time Temp Pulse Resp B/P (MAP) Pulse Ox O2 Delivery O2 Flow Rate FiO2 01/06/18 10:10 37 80 16 139/64 93 Nasal Cannula 4 01/06/18 10:00 79 16 140/65 93 Nasal Cannula 4 01/06/18 09:50 80 16 138/70 95 Nasal Cannula 4 01/06/18 09:40 80 16 158/66 95 Nasal Cannula 4 01/06/18 09:30 76 16 166/73 95 Oxymask 15 01/06/18 09:20 79 16 168/76 96 Oxymask 15 01/06/18 09:10 36.4 82 16 176/86 96 Oxymask 15 01/06/18 07:15 92 Room Air 01/06/18 00:19 Room Air 01/05/18 22:49 37.0 92 20 148/79 (102) 92 Room Air Notes Mental Status: alert / awake / arousable, participated in evaluation Pt Amnestic to Procedure: Yes Nausea / Vomiting: adequately controlled Pain: adequately controlled Airway Patency, RR, SpO2: stable & adequate BP & HR: stable & adequate Hydration State: stable & adequate Anesthetic Complications: no major complications apparent
--- NOTE | 2018-01-06 10:27 | Discharge Instructions ---
Discharge Instructions Date of Service Jan 06, 2018. Admission Reason for Admission: Abdominal Pain, Pancreatitis, Diabetes, Umbilical Discharge Discharge Diagnosis / Problem: Acute cholecystitis Discharge Goals Goal(s): Therapeutic intervention Activity Recommendations Activity Limitations: per Instructions/Follow-up section Lifting Limitations: no more than 25 pounds (for 3-4 weeks) Exercise/Sports Limitations: as tolerated (no strenuous activity 3-4 weeks) May Resume Sexual Activity: when tolerated Shower/Bathe: tomorrow (01/07 in evening) Driving or Machine Use: resume 3 days after discharge (as long as not taking narcotics) . Instructions / Follow-Up Instructions / Follow-Up Russell; [id number]; 2 weeks in clinic Current Hospital Diet Patient's current hospital diet: Clear Liquid Diet Discharge Diet Recommended Diet: Regular Diet Procedures Procedures Performed: 1. Laparoscopic Cholecystectomy 2. Umbilical Hernia Repair Pending Studies Studies pending at discharge: no Laboratory Results Lipid Panel Test 01/05/18 07:47 Range/Units Triglycerides Level 63 0-150 mg/dl Cholesterol Level 120 0-200 mg/dl HDL Cholesterol 61 mg/dl Cholesterol/HDL Ratio 2.0 LDL Cholesterol, Calculated 46 mg/dl Work Instructions Return To Work: after follow-up Lifting Limitations: no more than 20 pounds Medical Emergencies . Who to Call and When: Medical Emergencies: If at any time you feel your situation is an emergency, please call 911 immediately. . Non-Emergent Contact Non-Emergency issues call your: Primary Care Provider Call Non-Emergent contact if: temperature is above 101.5, your pain is not controlled, your pain is worsening, your pain is unusual for you, your pain is concerning you, wound has increased redness, wound has increased pain, you have any medication questions . "Provider Documentation" section prepared by Rojelio Wells. . [place] Drug Monitoring Program Search Results: no issues identified
--- NOTE | 2018-01-06 10:30 | OPERATIVE REPORT ---
DATE OF OPERATION: 01/06/2018 PREOPERATIVE DIAGNOSES: 1. Acute cholecystitis. 2. Possible gallstone pancreatitis. 3. Umbilical hernia. POSTOPERATIVE DIAGNOSES: Same. PROCEDURES PERFORMED: 1. Laparoscopic cholecystectomy with attempted intraoperative cholangiogram. 2. Umbilical hernia repair. SURGEON: Dr. Rojelio Wells. LITHOGRAPHIC GENERAL WORKER: None. ANESTHESIA: General endotracheal with 0.5% Marcaine with epinephrine local. ESTIMATED BLOOD LOSS: 30 mL SPECIMENS: Gallbladder pathology. COMPLICATIONS: None. DRAINS: None. INDICATION FOR PROCEDURE: This is a 77-year-old white male who was admitted with a slight elevation in his lipase, which came back to almost normal on the day of surgery. He does not have a dilated duct. His gallbladder ultrasound showed signs consistent with acute cholecystitis with sludge and stones. Likely, he had some sludge pass through his duct causing pancreatitis. We will attempt to do a laparoscopic cholecystectomy and intraoperative cholangiogram. We will also fix his umbilical hernia at the same time. We went over the risks in detail. DESCRIPTION OF PROCEDURE: The patient was taken to the OR and underwent excellent general endotracheal anesthesia. His abdomen was prepped and draped in normal sterile fashion. Transverse supraumbilical incision was made and dissection was taken down to identify his fascia. He had a large umbilical hernia with incarcerated omentum. Incision was then used to circumferentially dissect around the hernia sac. This was done with a Berta clamp. The sac was then entered into and taken away from the fascia. The hernia sac was completely resected. There was a large amount of omentum, which was not easily reduced; therefore, a portion of the omentum was resected and removed. This allowed reduction of the omentum into the peritoneal cavity. Jarad trocar was then inserted and secured with Vicryl sutures. Good pneumoperitoneum was then achieved to 15 mmHg pressure. The patient was placed in head up and rolled to the left. An 11 subxiphoid two 5 lateral ports were placed in normal fashion. The gallbladder was identified, it was acutely inflamed. The fundus was grasped and retracted superiorly. The neck was grasped and retracted laterally. There were multiple inflammatory changes to the duct and the artery. Using blunt and sharp dissection with cautery, the cystic artery and cystic duct were skeletonized. Medial and lateral window was created between the gallbladder and gallbladder fossa showing these structures going straight to the gallbladder. There were multiple inflammatory changes, which in my opinion made the cholangiogram risky. Therefore, the cholangiogram was aborted. Two clips were placed proximally in the cystic artery and 1 distally and the cystic artery was transected. A posterior branch was also clipped and transected. The duct was then 3 times clipped distally and 1 proximally and it was transected. The duct was small and it did not appear that any stone passed through this duct. Once this was completed, an electrocautery hook was then used into the gallbladder and gallbladder fossa. The gallbladder was brought with an Endobag and sent for pathologic evaluation. The pneumoperitoneum was reestablished. The abdomen was irrigated and suctioned clear. There were some raw areas, which were bleeding on Wendy's capsule, which were cauterized. There was probably a total of 30 mL of blood loss. The clips were well placed in the duct and artery with no sign of a leak. Ports were then removed. Pneumoperitoneum was decompressed. The 0 Ethibond sutures in a [id number] manner used to close the umbilical hernia defect. Separate sutures were used to close this 2-cm defect. Once this was done, 0.5% Marcaine with epinephrine local was used to create a local field block. Interrupted Vicryl was used to create an umbilicoplasty. Marisol were used to close the skin. Sterile dressings were applied. The patient tolerated the procedure well without complications, sent to post-recovery for a period of observation and will be discharged up to his room once he meets criteria. I attest to the content of the Intraoperative Record and any orders documented therein. Any exceptions are noted below. MIMI
[2018-01-06 11:08] LABS: HEMATOCRIT 44.4 % (42-52); HEMOGLOBIN 14.7 g/dL (14.0-18.0); MEAN CELL VOLUME 93.9 fL (80-100); MEAN CORPUSCULAR HEMOGLOBIN 31.1 pg (25-34); MEAN CORPUSCULAR HGB CONC 33.1 g/dl (32-36); MEAN PLATELET VOLUME 10.7 fL (7.4-10.4); PLATELET COUNT 138 K/uL (130-400); RED CELL DISTRIBUTION WIDTH CV 13.2 % (11.5-14.5); RED CELL DISTRIBUTION WIDTH SD 45.7 fL (36.4-46.3); WHITE BLOOD COUNT 9.24 K/uL (4.8-10.8)
--- NOTE | 2018-01-06 11:40 | Progress Note ---
Medicine Progress Note Date & Time of Visit: Jan 06, 2018 at 11:35. Subjective s/p Lap Stephanie and Umb Hernia Repair states he feels fine overall except for mild soreness on his umbilical region/ surgical site no nausea no flatus or BM yet denies headache, chest pain, dyspnea, palpitation, dizziness no other symptoms Objective Last 8 Hrs Date Time Temp Pulse Resp B/P (MAP) Pulse Ox O2 Delivery O2 Flow Rate FiO2 01/06/18 11:29 83 18 146/77 (100) 95 4.0 01/06/18 11:01 78 18 133/79 (97) 95 4.0 01/06/18 10:46 36.7 80 18 149/73 (98) 93 4.0 01/06/18 10:28 36.3 81 20 147/70 (95) 93 Nasal Cannula 4.0 01/06/18 10:10 37 80 16 139/64 93 Nasal Cannula 4 01/06/18 10:00 79 16 140/65 93 Nasal Cannula 4 01/06/18 09:50 80 16 138/70 95 Nasal Cannula 4 01/06/18 09:40 80 16 158/66 95 Nasal Cannula 4 01/06/18 09:30 76 16 166/73 95 Oxymask 15 01/06/18 09:20 79 16 168/76 96 Oxymask 15 01/06/18 09:10 36.4 82 16 176/86 96 Oxymask 15 01/06/18 07:15 92 Room Air Physical Exam: General-oriented 3 not in distress speaking sentences Head- atraumatic Eyes- anicteric ENT- oropharynx clear Neck- supple, no JVD, no adenopathy Lungs- clear breath sounds bilaterally, no rales/wheezes Heart- regular rhythm; no murmurs, normal rate Abdomen- hypoactive bowel sounds, moderately distended, soft, nontender Extremities- no pretibial edema, no calf tenderness; peripheral pulses intact Neuro- alert, oriented x 3; no gross focal motor or sensory deficits or any other neurologic deficits Skin- warm & dry Laboratory Results: Last 24 Hours Test 01/05/18 17:00 01/05/18 18:03 01/06/18 00:02 01/06/18 06:08 Ionized Calcium 1.10 mmol/l Bedside Glucose 111 mg/dl 110 mg/dl 103 mg/dl Test 01/06/18 09:50 01/06/18 10:50 Bedside Glucose 120 mg/dl White Blood Count 9.24 K/uL Red Blood Count 4.73 M/uL Hemoglobin 14.7 g/dL Hematocrit 44.4 % Mean Corpuscular Volume 93.9 fL Mean Corpuscular Hemoglobin 31.1 pg Mean Corpuscular Hemoglobin Concent 33.1 g/dl Platelet Count 138 K/uL Mean Platelet Volume 10.7 fL RDW Standard Deviation 45.7 fL RDW Coefficient of Variation 13.2 % Assessment & Plan ACUTE PANCREATITIS LIKELY SECONDARY TO GALLSTONES CHOLELITHIASIS -patient denies alcohol history -when asked about diet, such as greasy 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 No acute peripancreatic fluid collection. Secondary reactive changes of the descending portion of the duodenum and hepatic flexure. -RUQ ultrasound positive for cholelithiasis Remains hemodynamically stable Lipase level normalized General surgery consulted Dr. Gallegos 01/06/18 s/p cholecystectomy and umbilical hernia repair stable post op overall clear liquid diet for now on Cefazolin q8h ff up lipase and liver profile Umbilical Hernia -CT Abdomen does not suggest incarceration of hernia s/p Repair 01/06/18 Dyslipidemia -Hold statin Diabetes Insulin sliding scale for now Monitor BSG's Cardiac -Echocardiogram in 01/23/2017 with EF of 60 to 64%, PASP 38 mmHg, no significant valvular disease -patient is euvolemic, takes Lasix 20 mg at home -Hold Lasix for now , patient being hydrated for acute pancreatitis HTN Continue lisinopril As needed clonidine DVT ppx: SCDs Full Code daughter Niecy phone number [phone] Disposition Pending Anticipate discharge to home when medically stable and cleared by surgery Current Inpatient Medications: Current Inpatient Medications Medications (Trade) Dose Ordered Sig/Pravin Route Start Time Stop Time Status Last Admin Dose Admin Ioversol (Optiray 320) 100 ml UD PRN IV 01/04/18 18:30 01/08/18 18:29 Lisinopril (Zestril Tab) 20 mg DAILY PO 01/05/18 08:00 02/04/18 08:59 01/05/18 07:55 20 MG Hydromorphone HCl (Dilaudid Inj) 0.5 mg Q6H PRN IV 01/04/18 20:45 01/18/18 20:44 01/05/18 11:32 0.5 MG Acetaminophen (Tylenol Tab) 650 mg Q4H PRN PO 01/04/18 20:45 02/03/18 20:44 01/05/18 07:51 650 MG Lactated Ringer's 1,000 ml @ 75 mls/hr [id number] IV 01/05/18 08:00 02/04/18 07:59 01/06/18 03:23 75 MLS/HR Oxycodone/ Acetaminophen (Percocet 5-325mg Tab) 2 tab Q4H PRN PO 01/05/18 10:30 01/19/18 10:29 Cefazolin Sodium 22.5 ml @ 3 mls/min PREOP IV 01/06/18 06:00 01/06/18 18:00 01/06/18 07:40 3 MLS/MIN Glucose (Glucose 40% Gel) 15-30 GRAMS 15 GRAMS... UD PRN PO 01/05/18 11:45 02/04/18 11:44 Glucose (Glucose Chew Tab) 4-8 Tablets 4 Tabl... UD PRN PO 01/05/18 11:45 02/04/18 11:44 Dextrose (Dextrose 50% 50ML Syringe) 25-50ML OF 50% DW IV FOR... UD PRN IV 01/05/18 11:45 02/04/18 11:44 Glucagon (Glucagon Inj) 1 mg UD PRN SQ 01/05/18 11:45 02/04/18 11:44 Calcium Carbonate (oS-Luis 500 TAB) 1,250 mg BID PO 01/05/18 20:00 02/04/18 19:59 01/05/18 20:39 1,250 MG Insulin Aspart (novoLOG ASPART) SLIDING SCALE If C... Q6 SC 01/05/18 18:00 02/04/18 16:29 Clonidine HCl (Catapres Tab) 0.1 mg Q6H PRN PO 01/05/18 14:15 02/04/18 14:14 01/05/18 14:27 0.1 MG Menthol (Nice Magda) 1 magda PRN PRN MAGDA 01/05/18 21:00 02/04/18 20:59 Fentanyl Citrate (Fentanyl Inj) 25 mcg Q5M PRN IV 01/06/18 07:00 01/06/18 12:00 01/06/18 09:44 25 MCG Hydromorphone HCl (Dilaudid Inj) 0.5 mg Q5M PRN IV 01/06/18 07:00 01/06/18 12:00 Ondansetron HCl (Zofran Inj) 4 mg ONE PRN IV 01/06/18 07:00 01/06/18 12:00 Ephedrine Sulfate (EpHEDrine SULFATE INJ) 5 mg Q5M PRN IV 01/06/18 07:00 01/06/18 12:00 Atropine Sulfate (Atropine Sulfate 0.1mg/ml Inj) 0.5 mg Q1M PRN IV 01/06/18 07:00 01/06/18 12:00 Phenylephrine HCl (Dontrell-Synephrine 500MCG/5ML Syr) 100 mcg Q5M PRN IV 01/06/18 07:00 01/06/18 12:00 Morphine Sulfate (MoRPHine SULFATE INJ) 2 mg Q1H PRN IV 01/06/18 09:15 01/20/18 09:14 Ondansetron HCl (Zofran Inj) 4 mg Q6H PRN IV 01/06/18 09:15 02/05/18 09:14 Oxycodone/ Acetaminophen (Percocet 5-325mg Tab) `1-2 tabs for pain 1 tab ... Q4H PRN PO 01/06/18 09:15 01/20/18 09:14 Cefazolin Sodium 2000 mg/Dextrose 65 ml @ 100 mls/hr Q8H IV 01/06/18 16:00 01/16/18 15:59
[2018-01-06 11:43] LABS: BASO % 0.1 %; BASO ABS # 0.01 K/uL (0-0.2); EOS % 0.5 %; EOS ABS # 0.05 K/uL (0-0.5); IG# 0.03 K/uL (0.00-0.02); LYMPH % 6.6 %; LYMPH ABS # 0.61 K/uL (1.2-3.4); MONO % 2.3 %; MONO ABS # 0.21 K/uL (0.11-0.59); NEUT % 90.2 %; NEUT ABS # 8.33 K/uL (1.4-6.5)
[2018-01-06 11:45] LABS: CALCIUM 8.3 mg/dl (8.5-10.1); CREATININE 0.62 mg/dl (0.60-1.40); POTASSIUM 3.8 mmol/L (3.5-5.1)
[2018-01-06 11:51] LABS: TOTAL PROTEIN 6.4 gm/dl (6.4-8.2)
--- NOTE | 2018-01-06 12:35 | Gastrointestinal Consultation ---
Gastrointestinal Consultation Date of Consultation: Jan 06, 2018 Attending Physician: Dr Vijay Barrientos Consulting Physician: Dr Silvino Jones Reason for Consultation: Pancretitis History of Present Illness Patient is a 77 year old male admitted with CC of abd pain. HPI , daugther and son in law with patient for H and P. Pt with umbilical hernia since 2003 not really bothering him. Over last couple weeks note abd pain at umbiliculus worse 2 days prior up to 06/24 and presented to ER. A/P CT gallstones, diverticulosis, moderate stool burden rectum, pancreatitis, duodenitiis, reactive HF thickeing. U/S gallstones, fatty liver, hepatomegaly. Lipase initially elevated 582 resolved promptly and LFTS normal on admit and just AST minimally elevated today. Pt seen by surgeon and today had lap kellie and umbilical hernia repair. IOC was planned but not done secondary to inflammation per op note. Pt has post op incisional tenderness but denies other abd pain. States he drinks a single 7 and 7 cocktail daily containing about 1 shot of liquor. IGG subtypes ordered. lipids trigs only 63. Hx of pancreatitis 15 years ago. No change in bowels, no n/v. Past Medical/Surgical History Medical Problems: (1) Abdominal pain Status: Acute (2) Pancreatitis Status: Acute Family History Cancer Diabetes mellitus Heart disease Social History Smoking Status: Never Smoker Alcohol Use: other (1 shot of Seagrams in 7up daily) Drug Use: none Marital Status: Housing Status: lives with significant other Occupation Status: employed Allergies Coded Allergies: No Known Allergies (Unverified , 01/04/18) Current Medications Home Meds and Scripts Medications Dose Route/Sig Max Daily Dose Days Date Category Zocor (Simvastatin) 40 Mg Tab 40 Mg PO DAILY 01/04/18 Reported Lasix (Furosemide) 20 Mg Tab 20 Mg PO DAILY 01/04/18 Reported Zestril (Lisinopril) 20 Mg Tab 20 Mg PO DAILY 01/04/18 Reported Actos (Pioglitazone) 30 Mg Tab 30 Mg PO DAILY 01/04/18 Reported Glucophage (Metformin Hcl) 1,000 Mg Tab 1,000 Mg PO BID 01/04/18 Reported Review of Systems see HPI . Otherwise 10 ROS neg Physical Exam Date Time Temp Pulse Resp B/P (MAP) Pulse Ox O2 Delivery O2 Flow Rate FiO2 01/06/18 12:00 36.8 72 18 160/77 (104) 95 4.0 01/06/18 11:29 83 18 146/77 (100) 95 4.0 01/06/18 11:01 78 18 133/79 (97) 95 4.0 01/06/18 10:46 36.7 80 18 149/73 (98) 93 4.0 01/06/18 10:28 36.3 81 20 147/70 (95) 93 Nasal Cannula 4.0 01/06/18 10:10 37 80 16 139/64 93 Nasal Cannula 4 01/06/18 10:00 79 16 140/65 93 Nasal Cannula 4 01/06/18 09:50 80 16 138/70 95 Nasal Cannula 4 01/06/18 09:40 80 16 158/66 95 Nasal Cannula 4 01/06/18 09:30 76 16 166/73 95 Oxymask 15 01/06/18 09:20 79 16 168/76 96 Oxymask 15 01/06/18 09:10 36.4 82 16 176/86 96 Oxymask 15 01/06/18 07:15 92 Room Air 01/06/18 00:19 Room Air 01/05/18 22:49 37.0 92 20 148/79 (102) 92 Room Air 01/05/18 20:45 Room Air 01/05/18 16:00 Room Air 01/05/18 15:17 36.7 79 20 155/83 (107) 92 Room Air 01/05/18 14:00 174/81 (112) General Appearance: WD/WN, no apparent distress Eyes: normal inspection, PERRL ENT: hearing grossly normal, pharynx normal Neck: supple, trachea midline Respiratory/Chest: lungs clear, no respiratory distress Cardiovascular: regular rate, rhythm, no edema Abdomen: normal bowel sounds, non tender, soft, no organomegaly, no pulsatile mass, + pertinent finding (tymapnitic but post op, incisions covered with bandages) Extremities: normal range of motion, non-tender Neurologic/Psych: baseball sewer hand II-XII nml as tested, no motor/sensory deficits, alert, normal mood/affect, oriented x 3 Skin: normal color, no jaundice, warm/dry Laboratory Results Last 24 Hours Test 01/05/18 17:00 01/05/18 18:03 01/06/18 00:02 01/06/18 06:08 Ionized Calcium 1.10 mmol/l Bedside Glucose 111 mg/dl 110 mg/dl 103 mg/dl Test 01/06/18 09:50 01/06/18 10:50 01/06/18 11:29 Bedside Glucose 120 mg/dl 123 mg/dl White Blood Count 9.24 K/uL Red Blood Count 4.73 M/uL Hemoglobin 14.7 g/dL Hematocrit 44.4 % Mean Corpuscular Volume 93.9 fL Mean Corpuscular Hemoglobin 31.1 pg Mean Corpuscular Hemoglobin Concent 33.1 g/dl Platelet Count 138 K/uL Mean Platelet Volume 10.7 fL Neutrophils (%) (Auto) 90.2 % Lymphocytes (%) (Auto) 6.6 % Monocytes (%) (Auto) 2.3 % Eosinophils (%) (Auto) 0.5 % Basophils (%) (Auto) 0.1 % Neutrophils # (Auto) 8.33 K/uL Lymphocytes # (Auto) 0.61 K/uL Monocytes # (Auto) 0.21 K/uL Eosinophils # (Auto) 0.05 K/uL Basophils # (Auto) 0.01 K/uL RDW Standard Deviation 45.7 fL RDW Coefficient of Variation 13.2 % Immature Granulocyte % (Auto) 0.3 % Immature Granulocyte # (Auto) 0.03 K/uL Sodium Level 136 mmol/L Potassium Level 3.8 mmol/L Chloride Level 103 mmol/L Carbon Dioxide Level 23 mmol/L Anion Gap 10.0 mmol/L Blood Urea Nitrogen 11 mg/dl Creatinine 0.62 mg/dl Est Creatinine Clear Calc Drug Dose 115.7 ml/min Estimated GFR () 109.4 Estimated GFR (Non- 94.4 BUN/Creatinine Ratio 17.3 Random Glucose 129 mg/dl Calcium Level 8.3 mg/dl Total Bilirubin 0.8 mg/dl Direct Bilirubin 0.3 mg/dl Aspartate Amino Transf (AST/SGOT) 38 U/L Alanine Aminotransferase (ALT/SGPT) 37 U/L Alkaline Phosphatase 56 U/L Total Protein 6.4 gm/dl Albumin 3.0 gm/dl Lipase 91 U/L Impression pancreatitis--resolved quickly, could have been from gallstones but LFTS did not bump so not clear. ETOH possible etiology but if he drinking only one shot a day that would be less likely. However told him at least for next month no ETOH. Lipids normal. IgG pending. Recommend repeat A/P CT to look at pancreas versus EUS in 6-8 weeks and told patient to make appointment with us at [facility] office on DC abd pain--more periumbilical suggests the hernia etiiology fatty liver--LFTS normal and most likely from being overweight hepatomegaly--from being overweight umbilical hernia--s/p repair cholecystitis--s/p lap kellie I am going off service tomorrow 01/[address] Lan assuming GI care then.
[2018-01-06] MEDS: CALCIUM CARBONATE 1250MG TAB PO SCH (12:36)
[2018-01-06] MEDS: LISINOPRIL 20 MG TAB PO SCH (12:37)
[2018-01-06] MEDS: CEFAZOLIN IV 2,000 MG in DEXTROSE 5% 50ML 50 ML IV SCH ×2 (15:40→23:43)
[2018-01-06] MEDS ORDERED: NURSING VERBAL MED ORDER ONE (17:45)
[2018-01-07 00:26] VITALS: BP 157/72; PULSE 88; TEMP 36.9; O2SAT 93
[2018-01-07 06:11] LABS: BASO % 0.1 %; BASO ABS # 0.01 K/uL (0-0.2); EOS % 0.1 %; EOS ABS # 0.01 K/uL (0-0.5); HEMATOCRIT 42.2 % (42-52); HEMOGLOBIN 13.4 g/dL (14.0-18.0); IG# 0.02 K/uL (0.00-0.02); LYMPH % 12.8 %; LYMPH ABS # 1.15 K/uL (1.2-3.4); MEAN CELL VOLUME 93.8 fL (80-100); MEAN CORPUSCULAR HEMOGLOBIN 29.8 pg (25-34); MEAN CORPUSCULAR HGB CONC 31.8 g/dl (32-36); MEAN PLATELET VOLUME 11.2 fL (7.4-10.4); MONO % 10.4 %; MONO ABS # 0.93 K/uL (0.11-0.59); NEUT % 76.4 %; NEUT ABS # 6.85 K/uL (1.4-6.5); PLATELET COUNT 159 K/uL (130-400); RED CELL DISTRIBUTION WIDTH CV 13.3 % (11.5-14.5); RED CELL DISTRIBUTION WIDTH SD 45.9 fL (36.4-46.3); WHITE BLOOD COUNT 8.97 K/uL (4.8-10.8)
[2018-01-07] MEDS: LACTATED RINGER'S 1000ML 1,000 ML IV SCH (06:19)
[2018-01-07 06:42] LABS: ALBUMIN 2.8 gm/dl (3.4-5.0); CALCIUM 8.7 mg/dl (8.5-10.1); CREATININE 0.59 mg/dl (0.60-1.40); POTASSIUM 3.8 mmol/L (3.5-5.1)
[2018-01-07 06:45] LABS: TOTAL PROTEIN 6.1 gm/dl (6.4-8.2)
[2018-01-07] MEDS: LISINOPRIL 20 MG TAB PO SCH (08:09)
[2018-01-07] MEDS: CEFAZOLIN IV 2,000 MG in DEXTROSE 5% 50ML 50 ML IV SCH (08:09)
[2018-01-07 08:12] VITALS: BP 167/81; PULSE 57; TEMP 36.6; O2SAT 92
--- NOTE | 2018-01-07 08:14 | Surgery Progress Note ---
Surgery Progress Note Date of Service Jan 07, 2018. Subjective Post OP Day: 1 + feeling well, + chest pain (chest pressure this morning, lasted for a few minutes and resolved), + flatus, + pain controlled, + diet (clear liquids), No ambulating, No SOB, No bowel movement, No nausea, No vomiting Objective Vital Signs: Date Time Temp Pulse Resp B/P (MAP) Pulse Ox O2 Delivery O2 Flow Rate FiO2 01/07/18 00:26 36.9 88 20 157/72 (100) 93 Room Air 01/07/18 00:15 Room Air 01/06/18 16:00 91 Room Air 01/06/18 15:41 36.9 79 22 149/64 (92) 95 Nasal Cannula 2.0 01/06/18 12:00 36.8 72 18 160/77 (104) 95 4.0 01/06/18 11:29 83 18 146/77 (100) 95 4.0 01/06/18 11:01 78 18 133/79 (97) 95 4.0 01/06/18 10:46 36.7 80 18 149/73 (98) 93 4.0 01/06/18 10:28 36.3 81 20 147/70 (95) 93 Nasal Cannula 4.0 01/06/18 10:10 37 80 16 139/64 93 Nasal Cannula 4 01/06/18 10:00 79 16 140/65 93 Nasal Cannula 4 01/06/18 09:50 80 16 138/70 95 Nasal Cannula 4 01/06/18 09:40 80 16 158/66 95 Nasal Cannula 4 01/06/18 09:30 76 16 166/73 95 Oxymask 15 01/06/18 09:20 79 16 168/76 96 Oxymask 15 01/06/18 09:10 36.4 82 16 176/86 96 Oxymask 15 General Appearance: WD/WN, no apparent distress, + obese Head: normocephalic, atraumatic Neck: trachea midline Respiratory/Chest: lungs clear, normal breath sounds, no respiratory distress, no accessory muscle use Cardiovascular: regular rate, rhythm, no murmur Abdomen: soft, no organomegaly, + distended, + tenderness (mild tenderness at incision sites appropriate post op) Incision(s): clean, dry (dressings clean and dry, incisions not inspected) Laboratory Results: Results Past 24 Hours Test 01/06/18 09:50 01/06/18 10:50 01/06/18 11:29 01/06/18 16:29 Range/Units Bedside Glucose 120 123 172 70-99 mg/dl White Blood Count 9.24 4.8-10.8 K/uL Red Blood Count 4.73 4.7-6.1 M/uL Hemoglobin 14.7 14.0-18.0 g/dL Hematocrit 44.4 42-52 % Mean Corpuscular Volume 93.9 80-100 fL Mean Corpuscular Hemoglobin 31.1 25-34 pg Mean Corpuscular Hemoglobin Concent 33.1 32-36 g/dl Platelet Count 138 130-400 K/uL Mean Platelet Volume 10.7 7.4-10.4 fL Neutrophils (%) (Auto) 90.2 % Lymphocytes (%) (Auto) 6.6 % Monocytes (%) (Auto) 2.3 % Eosinophils (%) (Auto) 0.5 % Basophils (%) (Auto) 0.1 % Neutrophils # (Auto) 8.33 1.4-6.5 K/uL Lymphocytes # (Auto) 0.61 1.2-3.4 K/uL Monocytes # (Auto) 0.21 0.11-0.59 K/uL Eosinophils # (Auto) 0.05 0-0.5 K/uL Basophils # (Auto) 0.01 0-0.2 K/uL RDW Standard Deviation 45.7 36.4-46.3 fL RDW Coefficient of Variation 13.2 11.5-14.5 % Immature Granulocyte % (Auto) 0.3 % Immature Granulocyte # (Auto) 0.03 0.00-0.02 K/uL Sodium Level 136 136-145 mmol/L Potassium Level 3.8 3.5-5.1 mmol/L Chloride Level 103 98-107 mmol/L Carbon Dioxide Level 23 21-32 mmol/L Anion Gap 10.0 3-11 mmol/L Blood Urea Nitrogen 11 7-18 mg/dl Creatinine 0.62 0.60-1.40 mg/dl Est Creatinine Clear Calc Drug Dose 115.7 ml/min Estimated GFR () 109.4 Estimated GFR (Non- 94.4 BUN/Creatinine Ratio 17.3 10-20 Random Glucose 129 70-99 mg/dl Calcium Level 8.3 8.5-10.1 mg/dl Total Bilirubin 0.8 0.2-1 mg/dl Direct Bilirubin 0.3 0-0.2 mg/dl Aspartate Amino Transf (AST/SGOT) 38 15-37 U/L Alanine Aminotransferase (ALT/SGPT) 37 12-78 U/L Alkaline Phosphatase 56 45-117 U/L Total Protein 6.4 6.4-8.2 gm/dl Albumin 3.0 3.4-5.0 gm/dl Lipase 91 73-393 U/L Test 01/06/18 20:38 01/07/18 05:15 01/07/18 07:47 Range/Units Bedside Glucose 196 119 70-99 mg/dl White Blood Count 8.97 4.8-10.8 K/uL Red Blood Count 4.50 4.7-6.1 M/uL Hemoglobin 13.4 14.0-18.0 g/dL Hematocrit 42.2 42-52 % Mean Corpuscular Volume 93.8 80-100 fL Mean Corpuscular Hemoglobin 29.8 25-34 pg Mean Corpuscular Hemoglobin Concent 31.8 32-36 g/dl Platelet Count 159 130-400 K/uL Mean Platelet Volume 11.2 7.4-10.4 fL Neutrophils (%) (Auto) 76.4 % Lymphocytes (%) (Auto) 12.8 % Monocytes (%) (Auto) 10.4 % Eosinophils (%) (Auto) 0.1 % Basophils (%) (Auto) 0.1 % Neutrophils # (Auto) 6.85 1.4-6.5 K/uL Lymphocytes # (Auto) 1.15 1.2-3.4 K/uL Monocytes # (Auto) 0.93 0.11-0.59 K/uL Eosinophils # (Auto) 0.01 0-0.5 K/uL Basophils # (Auto) 0.01 0-0.2 K/uL RDW Standard Deviation 45.9 36.4-46.3 fL RDW Coefficient of Variation 13.3 11.5-14.5 % Immature Granulocyte % (Auto) 0.2 % Immature Granulocyte # (Auto) 0.02 0.00-0.02 K/uL Sodium Level 139 136-145 mmol/L Potassium Level 3.8 3.5-5.1 mmol/L Chloride Level 105 98-107 mmol/L Carbon Dioxide Level 27 21-32 mmol/L Anion Gap 7.0 3-11 mmol/L Blood Urea Nitrogen 10 7-18 mg/dl Creatinine 0.59 0.60-1.40 mg/dl Est Creatinine Clear Calc Drug Dose 121.6 ml/min Estimated GFR () 111.6 Estimated GFR (Non- 96.3 BUN/Creatinine Ratio 16.4 10-20 Random Glucose 120 70-99 mg/dl Calcium Level 8.7 8.5-10.1 mg/dl Total Bilirubin 0.6 0.2-1 mg/dl Aspartate Amino Transf (AST/SGOT) 53 15-37 U/L Alanine Aminotransferase (ALT/SGPT) 45 12-78 U/L Alkaline Phosphatase 51 45-117 U/L Total Protein 6.1 6.4-8.2 gm/dl Albumin 2.8 3.4-5.0 gm/dl Globulin 3.3 2.5-4.0 gm/dl Albumin/Globulin Ratio 0.8 0.9-2 Lipase 74 73-393 U/L Assessment & Plan POD # 1 s/p laparoscopic cholecystectomy -vitals stable, afebrile post op - abdominal pain minimal - improvement of LFTS, lipase wnl Plan: Continue current pain medication, encourage po Percocet prn pain over IV meds Encourage OOB to chair and ambulation with assistance Advance diet as tolerated will evaluate later this am Patient evaluated with Dr. Dougherty at 12:30 pm Sitting OOB in chair No abdominal pain Tolerated breakfast Wants to go home tomorrow Encouraged ambulation with assistance Advance diet as tolerated, encourage ambulation, and oral pain management as needed. Can discharge home tomorrow morning. Discharge instructions reviewed. Dr. Dougherty has seen and examined patient, agrees with above
[2018-01-07] MEDS: INSULIN ASPART 100 UNITS/ML 3 ML PEN SC SCH ×4 (08:43→20:55)
--- NOTE | 2018-01-07 13:21 | Progress Note ---
Medicine Progress Note Date & Time of Visit: Jan 07, 2018 at 13:14. Subjective Seen sitting up in bedside chair alert bright States he feels fine overall Abdominal pain resolved Tolerating clear liquid diet well No BMs but positive flatus No nausea vomiting Denies chest pain shortness of breath palpitations dizziness No other symptoms Objective Last 8 Hrs Date Time Temp Pulse Resp B/P (MAP) Pulse Ox O2 Delivery O2 Flow Rate FiO2 01/07/18 08:12 36.6 57 18 167/81 (109) 92 Room Air 01/07/18 08:00 Room Air Physical Exam: General-oriented 3 not in distress speaking sentences Eyes- anicteric Neck- supple, no JVD Lungs- clear breath sounds bilaterally Heart- regular rhythm; no murmurs, normal rate Abdomen-normal bowel sounds, mildly distended, soft, nontender Extremities- no pretibial edema, no calf tenderness; peripheral pulses intact Neuro- alert, oriented x 3; no gross focal motor or sensory deficits or any other neurologic deficits Skin- warm & dry Laboratory Results: Last 24 Hours Test 01/06/18 16:29 01/06/18 20:38 01/07/18 05:15 01/07/18 07:47 Bedside Glucose 172 mg/dl 196 mg/dl 119 mg/dl White Blood Count 8.97 K/uL Red Blood Count 4.50 M/uL Hemoglobin 13.4 g/dL Hematocrit 42.2 % Mean Corpuscular Volume 93.8 fL Mean Corpuscular Hemoglobin 29.8 pg Mean Corpuscular Hemoglobin Concent 31.8 g/dl Platelet Count 159 K/uL Mean Platelet Volume 11.2 fL Neutrophils (%) (Auto) 76.4 % Lymphocytes (%) (Auto) 12.8 % Monocytes (%) (Auto) 10.4 % Eosinophils (%) (Auto) 0.1 % Basophils (%) (Auto) 0.1 % Neutrophils # (Auto) 6.85 K/uL Lymphocytes # (Auto) 1.15 K/uL Monocytes # (Auto) 0.93 K/uL Eosinophils # (Auto) 0.01 K/uL Basophils # (Auto) 0.01 K/uL RDW Standard Deviation 45.9 fL RDW Coefficient of Variation 13.3 % Immature Granulocyte % (Auto) 0.2 % Immature Granulocyte # (Auto) 0.02 K/uL Sodium Level 139 mmol/L Potassium Level 3.8 mmol/L Chloride Level 105 mmol/L Carbon Dioxide Level 27 mmol/L Anion Gap 7.0 mmol/L Blood Urea Nitrogen 10 mg/dl Creatinine 0.59 mg/dl Est Creatinine Clear Calc Drug Dose 121.6 ml/min Estimated GFR () 111.6 Estimated GFR (Non- 96.3 BUN/Creatinine Ratio 16.4 Random Glucose 120 mg/dl Calcium Level 8.7 mg/dl Total Bilirubin 0.6 mg/dl Aspartate Amino Transf (AST/SGOT) 53 U/L Alanine Aminotransferase (ALT/SGPT) 45 U/L Alkaline Phosphatase 51 U/L Total Protein 6.1 gm/dl Albumin 2.8 gm/dl Globulin 3.3 gm/dl Albumin/Globulin Ratio 0.8 Lipase 74 U/L Test 01/07/18 11:55 Bedside Glucose 138 mg/dl Assessment & Plan Rapid ACUTE PANCREATITIS LIKELY SECONDARY TO GALLSTONES CHOLELITHIASIS -patient denies alcohol history -when asked about diet, such as greasy 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 No acute peripancreatic fluid collection. Secondary reactive changes of the descending portion of the duodenum and hepatic flexure. -RUQ ultrasound positive for cholelithiasis Remains hemodynamically stable Lipase level normalized General surgery consulted Dr. Gallegos 01/06/18 s/p cholecystectomy and umbilical hernia repair Remained stable postop day #1 Advance diet to full liquids, if tolerating advance to soft diet tonight on Cefazolin q8h Normal lipase and liver profile Appreciate general surgery service recommendations UMBILICAL HERNIA -CT Abdomen does not suggest incarceration of hernia s/p Repair 01/06/18 DIABETES Insulin sliding scale for now Monitor BSG's DYSLIPIDEMIA -Hold statin Cardiac -Echocardiogram in 01/23/2017 with EF of 60 to 64%, PASP 38 mmHg, no significant valvular disease -patient is euvolemic, takes Lasix 20 mg at home -Hold Lasix for now , patient being hydrated for acute pancreatitis HTN Continue lisinopril As needed clonidine Morbid Obesity outpatient ff up DVT ppx: SCDs start heparin subcutaneous if ok with Surgery Full Code daughter Niecy phone number [phone] Disposition Pending Anticipate discharge to home when medically stable and cleared by surgery Current Inpatient Medications: Current Inpatient Medications Medications (Trade) Dose Ordered Sig/Pravin Route Start Time Stop Time Status Last Admin Dose Admin Ioversol (Optiray 320) 100 ml UD PRN IV 01/04/18 18:30 01/08/18 18:29 Lisinopril (Zestril Tab) 20 mg DAILY PO 01/05/18 08:00 02/04/18 08:59 01/07/18 08:09 20 MG Hydromorphone HCl (Dilaudid Inj) 0.5 mg Q6H PRN IV 01/04/18 20:45 01/18/18 20:44 01/05/18 11:32 0.5 MG Acetaminophen (Tylenol Tab) 650 mg Q4H PRN PO 01/04/18 20:45 02/03/18 20:44 01/05/18 07:51 650 MG Lactated Ringer's 1,000 ml @ 75 mls/hr [id number] IV 01/05/18 08:00 02/04/18 07:59 01/07/18 06:19 75 MLS/HR Oxycodone/ Acetaminophen (Percocet 5-325mg Tab) 2 tab Q4H PRN PO 01/05/18 10:30 01/19/18 10:29 Glucose (Glucose 40% Gel) 15-30 GRAMS 15 GRAMS... UD PRN PO 01/05/18 11:45 02/04/18 11:44 Glucose (Glucose Chew Tab) 4-8 Tablets 4 Tabl... UD PRN PO 01/05/18 11:45 02/04/18 11:44 Dextrose (Dextrose 50% 50ML Syringe) 25-50ML OF 50% DW IV FOR... UD PRN IV 01/05/18 11:45 02/04/18 11:44 Glucagon (Glucagon Inj) 1 mg UD PRN SQ 01/05/18 11:45 02/04/18 11:44 Clonidine HCl (Catapres Tab) 0.1 mg Q6H PRN PO 01/05/18 14:15 02/04/18 14:14 01/05/18 14:27 0.1 MG Menthol (Nice Magda) 1 magda PRN PRN MAGDA 01/05/18 21:00 02/04/18 20:59 Morphine Sulfate (MoRPHine SULFATE INJ) 2 mg Q1H PRN IV 01/06/18 09:15 01/20/18 09:14 Ondansetron HCl (Zofran Inj) 4 mg Q6H PRN IV 01/06/18 09:15 02/05/18 09:14 Oxycodone/ Acetaminophen (Percocet 5-325mg Tab) `1-2 tabs for pain 1 tab ... Q4H PRN PO 01/06/18 09:15 01/20/18 09:14 Insulin Aspart (novoLOG ASPART) SLIDING SCALE If C... ACHS SC 01/06/18 22:00 02/05/18 21:59 01/07/18 08:43 1 UNITS Cefazolin Sodium 2000 mg/Syringe 15 ml @ 3.75 mls/ min Q8H IV 01/07/18 16:00 01/16/18 15:59
--- NOTE | 2018-01-07 13:48 | Clinical Documentation Query ---
CLINICAL DOCUMENTATION QUERY Dr. PAUL, In your clinical opinion does this patient have: ( X) Morbid obesity with BMI 41.3 ( ) Not Agree ( ) Other explanation of clinical findings (Please Explain) ( ) Unable to determine (Please Define) ( ) Need to Discuss BMI: A significantly high (>40) or significantly low (<19) BMI will impact the severity of illness and risk of mortality of your patient. However, the physician must document a correlating diagnosis in the medical record. Please clarify and document your clinical opinion in the progress notes and discharge summary. Terms such as "probable", "suspected", "likely", "questionable", "possible", or "still to be ruled out" are acceptable. IF IN AGREEMENT, YOU MUST DOCUMENT ABOVE DIAGNOSTIC STATEMENT IN DAILY PROGRESS NOTES AND DISCHARGE SUMMARY. This document is not part of the patient's record. Thank You, Uzma Berry RN [phone]
[2018-01-07 15:21] VITALS: BP 189/82; PULSE 65; TEMP 36.4; O2SAT 94
[2018-01-07] MEDS: CEFAZOLIN IV 2,000 MG in SYRINGE 0 ML IV SCH (15:47)
[2018-01-07 16:00] VITALS: O2SAT 94
--- NOTE | 2018-01-07 16:10 | PROGRESS NOTE ---
DATE: 01/07/2018 SUBJECTIVE: The patient is postop day #1 for laparoscopic cholecystectomy and umbilical hernia repair. He is doing well. His vital signs are normal except for slightly elevated blood pressure. He is afebrile. His liver tests and lipase have returned to normal. He is not having any abdominal pain. IMPRESSION: The patient is doing well following cholecystectomy his pancreatitis appears to have resolved. PLAN AND RECOMMENDATIONS: We will recommend that he follow up in 6-8 weeks in our office as he is continuing to have any problems or recurrent symptoms, then we can schedule additional tests such as US or CT.
[2018-01-07 16:47] VITALS: BP 154/70
[2018-01-07] MEDS: HEPARIN SOD 5000 UNIT/0.5 ML CARP SQ SCH (20:58)
[2018-01-07 23:30] VITALS: O2SAT 94
[2018-01-08 00:10] VITALS: BP 190/75; PULSE 72; TEMP 36.9; O2SAT 90
[2018-01-08 00:14] VITALS: BP 180/74
[2018-01-08] MEDS: CEFAZOLIN IV 2,000 MG in SYRINGE 0 ML IV SCH ×2 (00:17→08:23)
[2018-01-08] MEDS: CLONIDINE HCL 0.1 MG TAB PO PRN ×2 (00:17→08:25)
[2018-01-08 02:41] VITALS: BP 163/77
[2018-01-08 06:08] LABS: BASO % 0.2 %; BASO ABS # 0.02 K/uL (0-0.2); EOS % 4.3 %; EOS ABS # 0.35 K/uL (0-0.5); HEMATOCRIT 39.8 % (42-52); HEMOGLOBIN 13.3 g/dL (14.0-18.0); IG# 0.02 K/uL (0.00-0.02); LYMPH % 17.7 %; LYMPH ABS # 1.43 K/uL (1.2-3.4); MEAN CELL VOLUME 93.2 fL (80-100); MEAN CORPUSCULAR HEMOGLOBIN 31.1 pg (25-34); MEAN CORPUSCULAR HGB CONC 33.4 g/dl (32-36); MEAN PLATELET VOLUME 10.7 fL (7.4-10.4); MONO % 10.1 %; MONO ABS # 0.82 K/uL (0.11-0.59); NEUT % 67.5 %; NEUT ABS # 5.45 K/uL (1.4-6.5); PLATELET COUNT 157 K/uL (130-400); RED CELL DISTRIBUTION WIDTH CV 13.3 % (11.5-14.5); RED CELL DISTRIBUTION WIDTH SD 45.1 fL (36.4-46.3); WHITE BLOOD COUNT 8.09 K/uL (4.8-10.8)
[2018-01-08 06:55] LABS: CALCIUM 8.5 mg/dl (8.5-10.1); CREATININE 0.65 mg/dl (0.60-1.40); POTASSIUM 3.4 mmol/L (3.5-5.1)
[2018-01-08 07:28] VITALS: BP 170/72; PULSE 72; TEMP 36.7; O2SAT 91
[2018-01-08] MEDS: HEPARIN SOD 5000 UNIT/0.5 ML CARP SQ SCH (08:20)
[2018-01-08] MEDS: INSULIN ASPART 100 UNITS/ML 3 ML PEN SC SCH ×2 (08:23→12:29)
[2018-01-08] MEDS: LISINOPRIL 20 MG TAB PO SCH (08:24)
[2018-01-08] MEDS ORDERED: OXYC-57 PO (08:53)
--- NOTE | 2018-01-08 11:12 | Surgery Progress Note ---
Surgery Progress Note Date of Service Jan 08, 2018. Subjective Post OP Day: 2 + feeling well, + ambulating, + flatus, + pain controlled, + diet, No complaints , No chest pain, No SOB, No bowel movement, No nausea, No vomiting Objective Vital Signs: Date Time Temp Pulse Resp B/P (MAP) Pulse Ox O2 Delivery O2 Flow Rate FiO2 01/08/18 09:06 Room Air 01/08/18 07:28 36.7 72 18 170/72 (104) 91 Room Air 01/08/18 02:41 163/77 (105) 01/08/18 00:14 180/74 (109) 01/08/18 00:10 36.9 72 20 190/75 (113) 90 Room Air 01/07/18 23:30 94 Room Air 2.0 01/07/18 16:47 154/70 (98) 01/07/18 16:00 94 Room Air 01/07/18 15:21 36.4 65 20 189/82 (117) 94 Room Air General Appearance: WD/WN, no apparent distress Head: normocephalic, atraumatic Neck: trachea midline Respiratory/Chest: lungs clear, normal breath sounds, no respiratory distress, no accessory muscle use Cardiovascular: regular rate, rhythm, no murmur Abdomen: normal bowel sounds, soft, no organomegaly, no pulsatile mass, + distended (mild), + tenderness (at incision sites, mostly umbilical) Incision(s): clean, dry (dressings clean and dry, no drainage, incisions not inspected) Laboratory Results: Results Past 24 Hours Test 01/07/18 11:55 01/07/18 16:24 01/07/18 19:58 01/08/18 05:52 Range/Units Bedside Glucose 138 148 126 70-99 mg/dl White Blood Count 8.09 4.8-10.8 K/uL Red Blood Count 4.27 4.7-6.1 M/uL Hemoglobin 13.3 14.0-18.0 g/dL Hematocrit 39.8 42-52 % Mean Corpuscular Volume 93.2 80-100 fL Mean Corpuscular Hemoglobin 31.1 25-34 pg Mean Corpuscular Hemoglobin Concent 33.4 32-36 g/dl Platelet Count 157 130-400 K/uL Mean Platelet Volume 10.7 7.4-10.4 fL Neutrophils (%) (Auto) 67.5 % Lymphocytes (%) (Auto) 17.7 % Monocytes (%) (Auto) 10.1 % Eosinophils (%) (Auto) 4.3 % Basophils (%) (Auto) 0.2 % Neutrophils # (Auto) 5.45 1.4-6.5 K/uL Lymphocytes # (Auto) 1.43 1.2-3.4 K/uL Monocytes # (Auto) 0.82 0.11-0.59 K/uL Eosinophils # (Auto) 0.35 0-0.5 K/uL Basophils # (Auto) 0.02 0-0.2 K/uL RDW Standard Deviation 45.1 36.4-46.3 fL RDW Coefficient of Variation 13.3 11.5-14.5 % Immature Granulocyte % (Auto) 0.2 % Immature Granulocyte # (Auto) 0.02 0.00-0.02 K/uL Sodium Level 139 136-145 mmol/L Potassium Level 3.4 3.5-5.1 mmol/L Chloride Level 103 98-107 mmol/L Carbon Dioxide Level 29 21-32 mmol/L Anion Gap 7.0 3-11 mmol/L Blood Urea Nitrogen 8 7-18 mg/dl Creatinine 0.65 0.60-1.40 mg/dl Est Creatinine Clear Calc Drug Dose 110.3 ml/min Estimated GFR () 107.2 Estimated GFR (Non- 92.5 BUN/Creatinine Ratio 12.7 10-20 Random Glucose 124 70-99 mg/dl Calcium Level 8.5 8.5-10.1 mg/dl Lipase 64 73-393 U/L Test 01/08/18 07:43 Range/Units Bedside Glucose 110 70-99 mg/dl Assessment & Plan POD # 2 s/p laparoscopic cholecystectomy -vitals stable, afebrile post op - abdominal pain minimal, controlled - Hypertensive Plan: D/C IV antibiotics, afebrile post op, no leukocytosis From surgical standpoint may be discharged Discharge instructions reviewed Rx for po Percocet as needed for pain Follow-up surgical office in [address] Dougherty who agrees with above
[2018-01-08] MEDS ORDERED: POTASSIUM CHLORIDE 10 MEQ TABCR PO ONE (11:15)
--- NOTE | 2018-01-08 11:35 | Progress Note ---
Medicine Progress Note Date & Time of Visit: Jan 08, 2018 at 11:27. Subjective seen resting in bed, comfortable states he feels fine overall denies abdominal pain, nausea tolerating diet well (+) flatus, no BM yet no dyspnea, dizziness, palpitations ambulating fine no other symptoms states he is ready and would like to be discharged today Objective Last 8 Hrs Date Time Temp Pulse Resp B/P (MAP) Pulse Ox O2 Delivery O2 Flow Rate FiO2 01/08/18 09:06 Room Air 01/08/18 07:28 36.7 72 18 170/72 (104) 91 Room Air Physical Exam: General-oriented 3 not in distress speaking sentences Eyes- anicteric Neck- no JVD Lungs- clear breath sounds bilaterally, no rales/wheezes Heart- regular rhythm; no murmurs, normal rate Abdomen-normal bowel sounds, non distended, soft, nontender surgical incision sites with randell in place, healing well- no surrounding erythema, no discharge small areas of erythema underneath the adhesive on bilateral sides no signs of infection Extremities- no pretibial edema, no calf tenderness; peripheral pulses intact Neuro- alert, oriented x 3; no gross focal neuro deficits Skin- warm & dry Laboratory Results: Last 24 Hours Test 01/07/18 11:55 01/07/18 16:24 01/07/18 19:58 01/08/18 05:52 Bedside Glucose 138 mg/dl 148 mg/dl 126 mg/dl White Blood Count 8.09 K/uL Red Blood Count 4.27 M/uL Hemoglobin 13.3 g/dL Hematocrit 39.8 % Mean Corpuscular Volume 93.2 fL Mean Corpuscular Hemoglobin 31.1 pg Mean Corpuscular Hemoglobin Concent 33.4 g/dl Platelet Count 157 K/uL Mean Platelet Volume 10.7 fL Neutrophils (%) (Auto) 67.5 % Lymphocytes (%) (Auto) 17.7 % Monocytes (%) (Auto) 10.1 % Eosinophils (%) (Auto) 4.3 % Basophils (%) (Auto) 0.2 % Neutrophils # (Auto) 5.45 K/uL Lymphocytes # (Auto) 1.43 K/uL Monocytes # (Auto) 0.82 K/uL Eosinophils # (Auto) 0.35 K/uL Basophils # (Auto) 0.02 K/uL RDW Standard Deviation 45.1 fL RDW Coefficient of Variation 13.3 % Immature Granulocyte % (Auto) 0.2 % Immature Granulocyte # (Auto) 0.02 K/uL Sodium Level 139 mmol/L Potassium Level 3.4 mmol/L Chloride Level 103 mmol/L Carbon Dioxide Level 29 mmol/L Anion Gap 7.0 mmol/L Blood Urea Nitrogen 8 mg/dl Creatinine 0.65 mg/dl Est Creatinine Clear Calc Drug Dose 110.3 ml/min Estimated GFR () 107.2 Estimated GFR (Non- 92.5 BUN/Creatinine Ratio 12.7 Random Glucose 124 mg/dl Calcium Level 8.5 mg/dl Lipase 64 U/L Test 01/08/18 07:43 Bedside Glucose 110 mg/dl Assessment & Plan Rapid ACUTE PANCREATITIS LIKELY SECONDARY TO GALLSTONES CHOLELITHIASIS -CT imaging: Subtle peripancreatic fat stranding at the level of the pancreatic head is most consistent with interstitial edematous pancreatitis. No acute peripancreatic fluid collection. Secondary reactive changes of the descending portion of the duodenum and hepatic flexure. -RUQ ultrasound positive for cholelithiasis, Hepatic steatosis and hepatomegaly. General surgery consulted Dr. Gallegos 01/06/18 s/p cholecystectomy and umbilical hernia repair wound healing well tolerating diet well ff up with General Surgeon Dr. Wells in [address] Jones/Dr. Lan given IV fluids, placed on NPO Lipase on admission was in the 500s, normalized will need ff up with GI in 6 weeks Remained hemodynamically stable, afebrile clinically improved UMBILICAL HERNIA -CT Abdomen does not suggest incarceration of hernia s/p Umbilical hernia repair 01/06/18 DIABETES continue usual regimen DYSLIPIDEMIA hold statin until GI symptoms further resolve HTN Continue lisinopril, Lasix Morbid Obesity outpatient ff up DVT ppx: SCDs Heparin SC given Full Code daughter Niecy phone number [phone] Disposition d/c home ff up with Primary Care Provide on 01/11/18 ff up with Surgeon Dr. Wells in 1 week ff up with [facility] Gastroenterology Dr. Jones/Riky in 6 weeks Current Inpatient Medications: Current Inpatient Medications Medications (Trade) Dose Ordered Sig/Pravin Route Start Time Stop Time Status Last Admin Dose Admin Ioversol (Optiray 320) 100 ml UD PRN IV 01/04/18 18:30 01/08/18 18:29 Lisinopril (Zestril Tab) 20 mg DAILY PO 01/05/18 08:00 02/04/18 08:59 01/08/18 08:24 20 MG Hydromorphone HCl (Dilaudid Inj) 0.5 mg Q6H PRN IV 01/04/18 20:45 01/18/18 20:44 01/05/18 11:32 0.5 MG Acetaminophen (Tylenol Tab) 650 mg Q4H PRN PO 01/04/18 20:45 02/03/18 20:44 01/05/18 07:51 650 MG Oxycodone/ Acetaminophen (Percocet 5-325mg Tab) 2 tab Q4H PRN PO 01/05/18 10:30 01/19/18 10:29 Glucose (Glucose 40% Gel) 15-30 GRAMS 15 GRAMS... UD PRN PO 01/05/18 11:45 02/04/18 11:44 Glucose (Glucose Chew Tab) 4-8 Tablets 4 Tabl... UD PRN PO 01/05/18 11:45 02/04/18 11:44 Dextrose (Dextrose 50% 50ML Syringe) 25-50ML OF 50% DW IV FOR... UD PRN IV 01/05/18 11:45 02/04/18 11:44 Glucagon (Glucagon Inj) 1 mg UD PRN SQ 01/05/18 11:45 02/04/18 11:44 Clonidine HCl (Catapres Tab) 0.1 mg Q6H PRN PO 01/05/18 14:15 02/04/18 14:14 01/08/18 08:25 0.1 MG Menthol (Nice Magda) 1 magda PRN PRN MAGDA 01/05/18 21:00 02/04/18 20:59 Morphine Sulfate (MoRPHine SULFATE INJ) 2 mg Q1H PRN IV 01/06/18 09:15 01/20/18 09:14 Ondansetron HCl (Zofran Inj) 4 mg Q6H PRN IV 01/06/18 09:15 02/05/18 09:14 Oxycodone/ Acetaminophen (Percocet 5-325mg Tab) `1-2 tabs for pain 1 tab ... Q4H PRN PO 01/06/18 09:15 01/20/18 09:14 01/07/18 15:55 2 TAB Insulin Aspart (novoLOG ASPART) SLIDING SCALE If C... ACHS SC 01/06/18 22:00 02/05/18 21:59 01/08/18 08:23 2 UNITS Heparin Sodium (Porcine) (Heparin Sq 5000 Unit/0.5ml) 5,000 unit Q12 SQ 01/07/18 21:00 02/06/18 20:59 01/08/18 08:20 5,000 UNIT
[2018-01-08] MEDS ORDERED: SENN8.6T7 PO (11:40)
[2018-01-08] MEDS ORDERED: ACET-1047 PO (11:40)
--- NOTE | 2018-01-08 11:50 | Discharge Instructions ---
Discharge Instructions Date of Service Jan 08, 2018. Admission Reason for Admission: Abdominal Pain, Pancreatitis, Diabetes, Umbilical Discharge Discharge Diagnosis / Problem: PANCREATITIS, GALLBLADDER STONES Discharge Goals Goal(s): Diagnostic testing, Therapeutic intervention Activity Recommendations Activity Limitations: as noted below (NO HEAVY EXERTION OR WORKING UNTIL RE- EVALUATED BY PRIMARY CARE PHYSICIAN) Lifting Limitations: until after follow-up appointment Exercise/Sports Limitations: until after follow-up appointment Driving or Machine Use: NO DRIVING UNTIL RE-EVALUATED BY PRIMARY CARE PHYSICIAN . Instructions / Follow-Up Instructions / Follow-Up PLEASE REVIEW YOUR NEW MEDICATION LIST AND FOLLOW INSTRUCTIONS CAREFULLY. DO NOT DRIVE WHILE TAKING PERCOCET. CALL PRIMARY CARE PHYSICIAN, OR RETURN TO ER IMMEDIATELY IF WITH RECURRENCE OF SYMPTOMS, INCREASING ABDOMINAL PAIN, ABDOMINAL DISTENTION, NAUSEA, FEVER/CHILLS, INCREASING REDNESS/DISCHARGE/BLEEDING/SWELLING/PAIN ON THE SURGICAL SITE, PERSISTENT CONSTIPATION, INCREASING LEG SWELLING. FOLLOW UP WITH PRIMARY CARE PROVIDER TUNDE ABAD ON Sunday01/11/18 AT 2:35 PM AT [facility] IN [address] [place] [address] TEL. NO. [phone] FOLLOW UP WITH [facility] GENERAL SURGEON DR. SUNG IN 1 WEEK. PLEASE CALL SURGICAL OFFICE AT [phone] TO MAKE A FOLLOW UP APPOINTMENT. FOLLOW UP WITH CNA CAREGIVER- [facility] DR. WOOD/DR. JACK IN 6 WEEKS. TEL NO. Current Hospital Diet Patient's current hospital diet: Diabetes Type 2 Diet, Low Fat Diet Discharge Diet Recommended Diet: AHA Diet (Heart Healthy), Diabetes Type 2 Diet, Low Fat Diet Procedures Procedures Performed: 1. Laparoscopic Cholecystectomy 2. Umbilical Hernia Repair Pending Studies Studies pending at discharge: no Laboratory Results Lipid Panel Test 01/05/18 07:47 Range/Units Triglycerides Level 63 0-150 mg/dl Cholesterol Level 120 0-200 mg/dl HDL Cholesterol 61 mg/dl Cholesterol/HDL Ratio 2.0 LDL Cholesterol, Calculated 46 mg/dl Work Instructions Return To Work: after follow-up Lifting Limitations: no more than 20 pounds Medical Emergencies . Who to Call and When: Medical Emergencies: If at any time you feel your situation is an emergency, please call 911 immediately. . Non-Emergent Contact Non-Emergency issues call your: Primary Care Provider, Surgeon Call Non-Emergent contact if: you have a fever, your pain is not controlled, your pain is worsening, wound has increased drainage, wound has increased redness, wound has increased pain, you have any medication questions . . "Provider Documentation" section prepared by Vijay Barrientos. .
--- NOTE | 2018-01-08 11:59 | Discharge Summary ---
Discharge Summary Date of Service Jan 08, 2018. Discharge Summary Admission Date: Jan 04, 2018 at 21:16 Discharge Date: Jan 08, 2018 Discharge Disposition: Home Principal Diagnosis: ACUTE PANCREATITIS LIKELY SECONDARY TO CHOLELITHIASIS Secondary Diagnoses/Problems: Please refer to hospital course below. Procedures: Pre-Operative Diagnosis Cholecystitis and gallstone pancreatitis, Symptomatic Umbilical Hernia Post-Operative Diagnosis same Procedure(s) Performed 1. Laparoscopic Cholecystectomy 2. Umbilical Hernia Repair GALLBLADDER-ABD LIMITED CLINICAL HISTORY: 77 years-old Male presenting with rule out gallstones or gallbladder obstructions. TECHNIQUE: Real-time grayscale and limited color Doppler ultrasound imaging of the abdomen limited to the right upper quadrant was performed. COMPARISON: CT from 01/04/2018. FINDINGS: Pancreas: Largely obscured due to overlying bowel gas. Liver: Moderately hyperechogenic parenchyma with partial obscuration of the right hemidiaphragm, likely indicating moderate steatosis. The liver measures 20.8 cm in maximal sagittal dimension. Anechoic 1.6 cm cyst noted. Main portal vein patent with normal directional flow. Biliary: No intrahepatic biliary ductal dilatation. Common bile duct measures up to 5 mm in diameter. Gallbladder: Gallstones and gallbladder sludge without evidence of gallbladder distention, significant wall thickening, or inflammatory change. Trace pericholecystic fluid may be present. Right kidney: Normal in appearance. No hydronephrosis. Ascites: None. Other: None. IMPRESSION: 1. Cholelithiasis and gallbladder sludge. No biliary ductal dilatation or convincing evidence of cholecystitis. 2. Hepatic steatosis and hepatomegaly. Correlate with liver function tests to exclude steatohepatitis as a cause for abdominal pain. Electronically signed by: Carlos Hannah M.D. 01/04/2018 9:20 PM ABD/PELVIS IV CONTRAST ONLY CLINICAL HISTORY: 77 years-old Male presenting with RLQ pain, umbilical hernia. TECHNIQUE: Multidetector CT of the abdomen and pelvis was performed after the administration of intravenous contrast. IV contrast: 92 mL of Optiray 320. A dose lowering technique was used consistent with the principles of ALARA (as low as reasonably achievable). COMPARISON: None. CT DOSE (mGy.cm): The estimated cumulative dose is 1364.80 mGy.cm. FINDINGS: Chemistry Lecturer topogram: Unremarkable. Lung bases: Minimal basilar opacities, likely atelectasis. Multichamber enlargement of the heart. Coronary artery, mitral annular, and aortic valve calcification. No pericardial or pleural effusion. Liver: Normal morphology. Focal hypodense lesion in segment IVb, likely hepatic cyst. Parenchymal calculus noted in the right hepatic lobe, possibly indicating prior granulomatous infection. Patent hepatic vasculature. Biliary: No intrahepatic or extrahepatic biliary ductal dilatation. Gallbladder contains gallstones. Pancreas: Mild parenchymal atrophy. Peripancreatic fat infiltration at the level of the pancreatic head. No abnormal parenchymal enhancement allowing for atrophy. No peripancreatic fluid collection. Spleen: Normal. Adrenal glands: Normal. Kidneys and ureters: Few hypodensities in the kidneys likely simple cysts. Nonspecific mild perinephric fat stranding. No nephrolithiasis. No hydronephrosis. Ureters normal. Bladder: Normal. Pelvic organs: Prostate enlargement likely secondary to benign prostatic hyperplasia. Bowel: Moderate stool burden in the rectum. Few scattered diverticula in the sigmoid colon most prominently in the proximal portion. Mild stool burden in the remaining colon. Minimal wall thickening of the hepatic flexure likely secondarily reactive. The appendix is normal. No bowel obstruction. Mild wall thickening of the descending portion of the duodenum. Peritoneal cavity: Infiltration of the root of the small bowel mesentery. No free intraperitoneal gas or fluid. Lymph nodes: No enlarged lymph nodes in the abdomen or pelvis. Vasculature: Atherosclerosis of the normal caliber abdominal aorta. IVC patent. Abdominal wall: Large fat-containing umbilical hernia. Musculoskeletal: Degenerative changes of the spine. IMPRESSION: 1. Subtle peripancreatic fat stranding at the level of the pancreatic head is most consistent with interstitial edematous pancreatitis. No acute peripancreatic fluid collection. Secondary reactive changes of the descending portion of the duodenum and hepatic flexure. Electronically signed by: Carlos Hannah M.D. 01/04/2018 7:08 PM CHEST ONE VIEW PORTABLE CLINICAL HISTORY: 77 years-old Male presenting with ABDOMINAL PAIN/GI. TECHNIQUE: Portable upright AP view of the chest was obtained. COMPARISON: None. FINDINGS: Atherosclerosis of aortic arch. Cardiac silhouette enlarged. Pulmonary vascular prominence. Lungs and pleural spaces clear. Degenerative changes of the thoracic spine. Degenerative changes of the left acromioclavicular joint. Upper abdomen normal. IMPRESSION: 1. Cardiomegaly with volume overload. No ninfa pulmonary edema. Consultations: GENERAL SURGERY, GASTROENTEROLOGY Pending Studies/Follow-Up: PLEASE REFER TO HOSPITAL COURSE BELOW. Medication Reconciliation New Medications: Oxycodone/Acetaminophen 5MG/325MG (Percocet 5MG/325MG) Tab 1 TABLET PO Q4H PRN for Pain, #18 TAB Sennosides-Docusate Sodium (Senokot S) 1 Tab Tab 1 TAB PO DAILY PRN for Constipation for 10 Days, #10 TAB 1 Refill Acetaminophen (Mapap) 325 Mg Tab 650 MG PO Q4H PRN for Pain or Fever for 7 Days Continued Medications: Furosemide (Lasix) 20 Mg Tab 20 MG PO DAILY, TAB Lisinopril (Zestril) 20 Mg Tab 20 MG PO DAILY, TAB Metformin Hcl (Glucophage) 1,000 Mg Tab 1000 MG PO BID, TAB Pioglitazone (Actos) 30 Mg Tab 30 MG PO DAILY for 90 Days, #90 TAB 3 Refills Discontinued Medications: Simvastatin (Zocor) 40 Mg Tab 40 MG PO DAILY for 90 Days, #90 TAB 1 Refill Admission Information HPI (per Admitting provider): This is a 77 year old M with 2 days of abdominal discomfort. Pain is primarily around the umbilical hernia. However imaging does not show hernia incarceration and shows evidence of pancreatitis with lipase level above 500. Patient denies nausea or vomiting or changes with bowel movements or urination. Patient's family member reports him having episode of pancreatitis 15 years ago. As per ED physician, his interpretation of the CT abdomen imaging suggestive of gallstones and recommended to hospitalist of obtaining gallbladder ultrasound. Patient is not in acute distress and spoke comfortably on room air in full sentences. However on admission has hypertension with systolic bp above 200 and the systolic blood pressure was 194 during hospitalist medicine physician exam in the ED Physical Exam (per Admitting): General Appearance: no apparent distress Head: normocephalic, atraumatic Eyes: normal inspection, EOMI, sclerae normal ENT: normal ENT inspection, hearing grossly normal, pharynx normal Neck: supple, no JVD, trachea midline Respiratory/Chest: chest non-tender, lungs clear, normal breath sounds, no respiratory distress, no accessory muscle use Cardiovascular: regular rate, rhythm, no edema, no murmur, normal peripheral pulses Abdomen/GI: normal bowel sounds, soft, + pertinent finding (umbilical hernia , patient reports tenderness around umbilical hernia on palpation) Back: normal inspection, no CVA tenderness, no muscle spasm, normal range of motion Extremities/Musculoskelatal: normal inspection, no calf tenderness, normal capillary refill, no pedal edema, normal range of motion Neurologic/Psych: no motor/sensory deficits, alert, normal mood/affect, oriented x 3 Skin: normal color, warm/dry, no rash Hospital Course ACUTE PANCREATITIS LIKELY SECONDARY TO CHOLELITHIASIS -CT imaging: Subtle peripancreatic fat stranding at the level of the pancreatic head is most consistent with interstitial edematous pancreatitis. No acute peripancreatic fluid collection. Secondary reactive changes of the descending portion of the duodenum and hepatic flexure. -RUQ ultrasound positive for cholelithiasis, Hepatic steatosis and hepatomegaly. General surgery consulted Dr. Sung 01/06/18 s/p cholecystectomy and umbilical hernia repair wound healing well tolerating diet well ff up with General Surgeon Dr. Sung in [address] Jones/Dr. Lan given IV fluids, placed on NPO Lipase on admission was in the 500s, normalized will need ff up with GI in 6 weeks Remained hemodynamically stable, afebrile clinically improved UMBILICAL HERNIA -CT Abdomen does not suggest incarceration of hernia s/p Umbilical hernia repair 01/06/18 DIABETES continue usual regimen DYSLIPIDEMIA hold statin until GI symptoms further resolve HTN Continue lisinopril, Lasix Morbid Obesity outpatient ff up Abnormal CT Findings Cardiac: Multichamber enlargement of the heart. Coronary artery, mitral annular , and aortic valve calcification. -- further work up and ff up as outpatient Disposition d/c home ff up with Primary Care Provide on 01/11/18 ff up with Surgeon Dr. Sung in 1 week ff up with [facility] Gastroenterology Dr. Jones/Riky in 6 weeks Total time spent on discharge = 45 minutes This includes examination of the patient, discharge planning, medication reconciliation, and communication with other providers. Discharge Instructions Discharge Instructions Date of Service Jan 08, 2018. Admission Reason for Admission: Abdominal Pain, Pancreatitis, Diabetes, Umbilical Discharge Discharge Diagnosis / Problem: PANCREATITIS, GALLBLADDER STONES Discharge Goals Goal(s): Diagnostic testing, Therapeutic intervention Activity Recommendations Activity Limitations: as noted below (NO HEAVY EXERTION OR WORKING UNTIL RE- EVALUATED BY PRIMARY CARE PHYSICIAN) Lifting Limitations: until after follow-up appointment Exercise/Sports Limitations: until after follow-up appointment Driving or Machine Use: NO DRIVING UNTIL RE-EVALUATED BY PRIMARY CARE PHYSICIAN . Instructions / Follow-Up Instructions / Follow-Up PLEASE REVIEW YOUR NEW MEDICATION LIST AND FOLLOW INSTRUCTIONS CAREFULLY. DO NOT DRIVE WHILE TAKING PERCOCET. CALL PRIMARY CARE PHYSICIAN, OR RETURN TO ER IMMEDIATELY IF WITH RECURRENCE OF SYMPTOMS, INCREASING ABDOMINAL PAIN, ABDOMINAL DISTENTION, NAUSEA, FEVER/CHILLS, INCREASING REDNESS/DISCHARGE/BLEEDING/SWELLING/PAIN ON THE SURGICAL SITE, PERSISTENT CONSTIPATION, INCREASING LEG SWELLING. FOLLOW UP WITH PRIMARY CARE PROVIDER TUNDE ABAD ON Sunday01/11/18 AT 2:35 PM AT [facility] IN [address] [place] [address] TEL. NO. [phone] FOLLOW UP WITH [facility] GENERAL SURGEON DR. SUNG IN 1 WEEK. PLEASE CALL SURGICAL OFFICE AT [phone] TO MAKE A FOLLOW UP APPOINTMENT. FOLLOW UP WITH CATCH BASIN CLEANER- [facility] DR. JONES/DR. LAN IN 6 WEEKS. TEL NO. Current Hospital Diet Patient's current hospital diet: Diabetes Type 2 Diet, Low Fat Diet Discharge Diet Recommended Diet: AHA Diet (Heart Healthy), Diabetes Type 2 Diet, Low Fat Diet Procedures Procedures Performed: 1. Laparoscopic Cholecystectomy 2. Umbilical Hernia Repair Pending Studies Studies pending at discharge: no Laboratory Results Lipid Panel Test 01/05/18 07:47 Range/Units Triglycerides Level 63 0-150 mg/dl Cholesterol Level 120 0-200 mg/dl HDL Cholesterol 61 mg/dl Cholesterol/HDL Ratio 2.0 LDL Cholesterol, Calculated 46 mg/dl Work Instructions Return To Work: after follow-up Lifting Limitations: no more than 20 pounds Medical Emergencies . Who to Call and When: Medical Emergencies: If at any time you feel your situation is an emergency, please call 911 immediately. . Non-Emergent Contact Non-Emergency issues call your: Primary Care Provider, Surgeon Call Non-Emergent contact if: you have a fever, your pain is not controlled, your pain is worsening, wound has increased drainage, wound has increased redness, wound has increased pain, you have any medication questions . . "Provider Documentation" section prepared by Vijay Barrientos. . Discharge Instructions Date of Service Jan 06, 2018. Admission Reason for Admission: Abdominal Pain, Pancreatitis, Diabetes, Umbilical Discharge Discharge Diagnosis / Problem: Acute cholecystitis Discharge Goals Goal(s): Therapeutic intervention Activity Recommendations Activity Limitations: per Instructions/Follow-up section Lifting Limitations: no more than 25 pounds (for 3-4 weeks) Exercise/Sports Limitations: as tolerated (no strenuous activity 3-4 weeks) May Resume Sexual Activity: when tolerated Shower/Bathe: tomorrow (01/07 in evening) Driving or Machine Use: resume 3 days after discharge (as long as not taking narcotics) . Instructions / Follow-Up Instructions / Follow-Up [facility]; [phone]; 2 weeks in clinic Current Hospital Diet Patient's current hospital diet: Clear Liquid Diet Discharge Diet Recommended Diet: Regular Diet Procedures Procedures Performed: 1. Laparoscopic Cholecystectomy 2. Umbilical Hernia Repair Pending Studies Studies pending at discharge: no
[2018-01-08 12:11] VITALS: BP 170/72; PULSE 72; TEMP 36.7; O2SAT 91
== END 2018-01-08 13:36 | disposition home or self-care (01) | DRG 417 ==
LOC: C.EDB 17:44 → ENRESERV 20:52 → C.MS4W 21:16
PROVIDERS: ADMIT Hospitalist; ATTEND Internal Medicine
PROC: 0WQF0ZZ Repair Abdominal Wall, Open Approach (ICD-10-PCS; principal; 2018-01-06 07:30)
PROC: 0FT44ZZ Resection of Gallbladder, Percutaneous Endoscopic Approach (ICD-10-PCS; principal; 2018-01-06 07:30)
DX: K80.00 Calculus of gallbladder with acute cholecystitis without obstruction (principal); K85.10 Biliary acute pancreatitis without necrosis or infection; K42.0 Umbilical hernia with obstruction, without gangrene; Z68.41 Body mass index [BMI] 40.0-44.9, adult; I51.7 Cardiomegaly; I25.10 Atherosclerotic heart disease of native coronary artery without angina pectoris; I08.0 Rheumatic disorders of both mitral and aortic valves; I11.9 Hypertensive heart disease without heart failure; K76.0 Fatty (change of) liver, not elsewhere classified; E11.9 Type 2 diabetes mellitus without complications; E78.5 Hyperlipidemia, unspecified; E66.01 Morbid (severe) obesity due to excess calories; Z79.899 Other long term (current) drug therapy; Z79.84 Long term (current) use of oral hypoglycemic drugs; Z83.3 Family history of diabetes mellitus

== ENCOUNTER → 2018-02-12 | Outpatient (CLI) | payer OTHER ==
[~2018-02-12] MED LIST: ACET-1047 PO; ACT30 PO; FURO-85 PO; LISI-725 PO; METF-384 PO; OXYC-57 PO; SENN8.6T7 PO
--- NOTE | 2018-02-12 12:19 | DIAGNOSTIC IMAGING REPORT ---
MRCP CLINICAL HISTORY: 77 years-old Male presenting with ACUTE PANCREATITIS, history of cholecystectomy 3 weeks ago. TECHNIQUE: Multisequence, multiplanar MR imaging of the abdomen was performed without the use of intravenous contrast. IV contrast: None. COMPARISON: CT from 01/04/2018. FINDINGS: Localizer images: Unremarkable. Lung bases: Lungs and pleural spaces clear. Multichamber enlargement of the heart. No pericardial or pleural effusion. Liver: Normal morphology. Well-defined T2 hyperintense lesion in the inferior medial left hepatic lobe likely hepatic cyst. Postsurgical changes of the gallbladder fossa. No perihepatic fluid collection. Biliary: The posterior right hepatic duct enters the common hepatic duct fairly distal at the liver hilum. No intrahepatic or extrahepatic biliary ductal dilatation. Gallbladder surgically absent. Pancreas: Moderate parenchymal atrophy. No peripancreatic inflammatory change or fluid collection. No pancreatic ductal dilatation or cystic pancreatic lesion. Spleen: Normal noncontrast appearance. Adrenal glands: Normal noncontrast appearance. Kidneys and ureters: Multiple well-defined T2 hyperintense lesions scattered throughout the kidneys likely simple cysts. No hydronephrosis. Bowel: Normal noncontrast appearance. No bowel obstruction. Peritoneal cavity: No free fluid. Lymph nodes: No enlarged lymph nodes in the abdomen. Vasculature: Normal noncontrast appearance. Abdominal wall: Normal. Musculoskeletal: Normal. IMPRESSION: 1. Expected postsurgical changes status post cholecystectomy. No apparent complication. 2. Moderate parenchymal atrophy of the pancreas. No current evidence of pancreatitis. Electronically signed by: Carlos Hannah M.D. 02/12/2018 12:17 PM Dictated Date/Time: 02/12/2018 12:11 PM
== END | disposition home or self-care (01) ==
LOC: C.MRI 10:27
PROVIDERS: ATTEND Internal Medicine Gastroenterology
DX: K86.89 Other specified diseases of pancreas (principal)